=== PATIENT | female | born 1950 | race Caucasian/White ===

== ENCOUNTER 2017-04-05 18:51 | Inpatient (IN) | payer BC ==
[~2017-04-05] VITALS: Ht 157.5 cm; Wt 72.8 kg
[2017-04-06] VITALS (11 sets, daily range): BP systolic 103–137; BP diastolic 58–73; PULSE 59–73; RESP 18–20; Ht 157.5 cm; Wt 72.8 kg
[2017-04-06] MEDS ORDERED: NITROGLYCERIN (SL) 0.4 MG TAB SL PRN (02:30)
[2017-04-06] MEDS ORDERED: ACETAMINOPHEN 325 MG TAB PO PRN ×2 (02:30→15:30)
[2017-04-06] MEDS ORDERED: DOCU-144 PO (03:00)
[2017-04-06] MEDS ORDERED: ESCI10TA PO (03:00)
[2017-04-06] MEDS ORDERED: METF1000 PO (03:00)
[2017-04-06] MEDS ORDERED: GLYB5TAB3 PO (03:00)
[2017-04-06] MEDS ORDERED: GLUCAGON 1 MG INJ IM PRN (03:00)
[2017-04-06] MEDS ORDERED: GEMF600T60 PO (03:00)
[2017-04-06] MEDS ORDERED: NITR0.4T6 SL (03:00)
[2017-04-06] MEDS ORDERED: ACET325C PO (03:00)
[2017-04-06] MEDS ORDERED: ASPI81TA3 PO (03:00)
[2017-04-06] MEDS ORDERED: TRAZ100T15 PO (03:00)
[2017-04-06] MEDS ORDERED: ATOR80TA75 PO (03:00)
[2017-04-06] MEDS ORDERED: GLUCOSE GEL 15 GRAM TUBE PO PRN ×2 (03:00)
[2017-04-06] MEDS ORDERED: GLUCOSE GEL 15 GRAM TUBE BUCCAL PRN (03:00)
[2017-04-06] MEDS ORDERED: LISI-313 PO (03:00)
[2017-04-06] MEDS ORDERED: DEXTROSE 50% 50 ML SYRINGE IV PRN ×2 (03:00)
[2017-04-06] MEDS ORDERED: NOVO3I SC (03:00)
[2017-04-06] MEDS ORDERED: metFORMIN 500 MG TAB PO SCH (08:00)
[2017-04-06] MEDS: INSULIN ASPART [NOVOLOG] 3 ML PEN SC SCH ×3 (08:26→18:05)
[2017-04-06] MEDS ORDERED: ASPIRIN 81 MG TAB PO SCH (09:00)
[2017-04-06] MEDS ORDERED: GEMFIBROZIL 600 MG TAB PO SCH (09:00)
[2017-04-06] MEDS ORDERED: LISINOPRIL 5 MG TAB PO SCH (09:00)
[2017-04-06] MEDS ORDERED: DOCUSATE SODIUM 100 MG CAP PO SCH (09:00)
[2017-04-06] MEDS ORDERED: ESCITALOPRAM 10 MG TAB PO SCH (09:00)
[2017-04-06 10:09] LABS: BASOPHILS % 0.4 % (0.0-2.0); EOSINOPHILS # 0.1 10^3/ul (0.0-0.5); EOSINOPHILS % 2.7 % (0.0-7.0); HEMATOCRIT 40.5 % (37.0-47.0); HEMOGLOBIN 13.3 g/dl (12.0-16.0); LYMPHOCYTES # 1.1 10^3/ul (0.8-2.9); LYMPHOCYTES % 22.9 % (15.0-51.0); MEAN CORPUSCULAR HEMOGLOBIN 28.9 pg (29.0-33.0); MEAN CORPUSCULAR HGB CONC 32.8 g/dl (32.0-37.0); MEAN CORPUSCULAR VOLUME 87.9 fl (82.0-101.0); MONOCYTE # 0.4 10^3/ul (0.3-0.9); MONOCYTES % 7.5 % (0.0-11.0); NEUTROPHILS % 66.3 % (39.0-77.0); PLATELET COUNT 172 10^3/UL (140-415); RED BLOOD COUNT 4.61 10^6/ul (4.20-5.40); RED CELL DISTRIBUTION WIDTH 13.2 % (11.5-14.5); WHITE BLOOD COUNT 4.8 10^3/ul (4.8-10.8)
[2017-04-06 10:24] LABS: INR 0.94; PROTIME 12.6 Sec (12.2-14.2)
[2017-04-06 10:25] LABS: PARTIAL THROMBOPLASTIN TIME 28.4 Sec (25.0-35.0)
[2017-04-06 10:31] LABS: ALBUMIN/GLOBULIN RATIO 1.25; CALCIUM 9.5 mg/dl (8.4-10.2); CREATININE 0.81 mg/dl (0.44-1.00); POTASSIUM 4.3 mmol/L (3.5-5.1); TOTAL PROTEIN 7.2 g/dl (6.1-8.1)
[2017-04-06] MEDS ORDERED: FENTAnyl 50 MCG/ML VIAL ONE (14:40)
[2017-04-06] MEDS ORDERED: IODIXANOL LOCM 100 ML BTL ONE (14:40)
[2017-04-06] MEDS ORDERED: SOD CHLORIDE 0.9% 500 ML ONE (14:40)
[2017-04-06] MEDS ORDERED: LIDOCAINE 1% (MDV) 20 ML INJ ONE (14:40)
[2017-04-06] MEDS ORDERED: HEPARIN 1000 UNITS/ML 10 ML INJ ONE (14:40)
[2017-04-06] MEDS ORDERED: MIDAZOLAM 1 MG/ML 2 ML INJ ONE (14:40)
[2017-04-06] MEDS ORDERED: SOD CHLORIDE 0.9% 1,000 ML IV SCH (15:15)
--- NOTE | 2017-04-06 15:22 | PN ---
Date/Time of Note Date/Time of Note DATE: 04/06/17 TIME: 15:17 Assessment/Plan VTE Prophylaxis VTE Prophylaxis Intervention: ambulation Lines/Catheters IV Catheter Type (from Nrsg): Saline Lock Urinary Cath still in place: No Assessment/Plan Chief Complaint/Hosp Course Impression 1. Probable acute coronary syndrome, myocardial infarction ruled out. 2. Atherosclerotic heart disease. 3. Hypertension. 4. Diabetes mellitus type 2. 5. Dyslipidemia. Plan 66-year-old female with multiple risk factors for coronary artery disease was initially admitted to [facility] with chief complaint of left- sided chest pain and left arm pain. Patient was ruled out for myocardial infarction with serial cardiac enzymes and EKGs. Patient underwent Lexiscan myocardial perfusion imaging study which revealed significant anteroseptal and apical ischemia and normal ejection fraction. Patient was transferred to [facility] for left heart catheterization and coronary angiography and revascularization procedure as guided. I discussed this procedure with patient's son over the phone who appears her understood the procedure and indicated that his mother is willing to proceed with it. Problems: Subjective 24 Hr Interval Summary Constitutional: no complaints Eyes: no complaints ENT: no complaints Respiratory: no complaints Cardiovascular: no complaints Gastrointestinal: no complaints Genitourinary: no complaints Musculoskeletal: no complaints Skin: no complaints Neurologic: no complaints Exam/Review of Systems Vital Signs Vitals Vital Signs Date Time Temp Pulse Resp B/P Pulse Ox O2 Delivery O2 Flow Rate FiO2 04/06/17 12:32 65 04/06/17 11:49 98.3 20 137/73 96 04/06/17 00:30 Room Air Intake and Output 04/05/17 04/05/17 04/06/17 15:00 23:00 07:00 Intake Total 100 ml Balance 100 ml Exam Constitutional: alert, oriented, well developed Psych: nl mood/affect, no complaints Head: atraumatic, normocephalic Eyes: EOMI, nl conjunctiva Neck: non-tender, supple Respiratory: clear to auscultation, normal air movement Cardiovascular: nl pulses, regular rate and rhythm Gastrointestinal: nl liver, spleen, non-tender, soft Musculoskeletal: nl extremities to inspection, nl gait and stance Extremities: normal pulses Neurological: COUNSELOR CAMP II-XII intact Results Result Diagram: 04/06/17 0947 04/06/17 0947 Results 24 hrs Laboratory Tests Test 04/06/17 07:54 04/06/17 09:47 04/06/17 12:10 Bedside Glucose 175 175 White Blood Count 4.8 Red Blood Count 4.61 Hemoglobin 13.3 Hematocrit 40.5 Mean Corpuscular Volume 87.9 Mean Corpuscular Hemoglobin 28.9 L Mean Corpuscular Hemoglobin Concent 32.8 Red Cell Distribution Width 13.2 Platelet Count 172 Mean Platelet Volume 10.0 Neutrophils % 66.3 Lymphocytes % 22.9 Monocytes % 7.5 Eosinophils % 2.7 Basophils % 0.4 Nucleated Red Blood Cells % 0.0 Neutrophils # (Manual) 3 Lymphocytes # 1.1 Monocytes # 0.4 Eosinophils # 0.1 Basophils # 0.0 Nucleated Red Blood Cells # 0.0 Prothrombin Time 12.6 Prothrombin Time Ratio 1.0 INR International Normalized Ratio 0.94 Activated Partial Thromboplast Time 28.4 Sodium Level 138 Potassium Level 4.3 Chloride Level 103 Carbon Dioxide Level 26 Anion Gap 13 Blood Urea Nitrogen 17 Creatinine 0.81 Glucose Level 219 Calcium Level 9.5 Total Bilirubin 1.0 Direct Bilirubin 0.00 Indirect Bilirubin 1.0 Aspartate Amino Transf (AST/SGOT) 18 Alanine Aminotransferase (ALT/SGPT) 34 Alkaline Phosphatase 85 Total Protein 7.2 Albumin 4.0 Globulin 3.20 Albumin/Globulin Ratio 1.25 Medications Medications Current Medications Diagnostic Test (Pha) (Accu-Chek) 1 02 XX ; Start 04/07/17 at 02:00 Acetaminophen (Tylenol Tab) 650 mg Q6H PRN PO PAIN AND OR ELEVATED TEMP; Start 04/06/17 at 02:30 Lisinopril (Zestril) 5 mg DAILY PO Last administered on 04/06/17 08:31; Admin Dose 5 MG; Start 04/06/17 at 09:00 Aspirin (Aspirin) 81 mg DAILY PO Last administered on 04/06/17 08:31; Admin Dose 81 MG; Start 04/06/17 at 09:00 Docusate Sodium (Colace) 100 mg DAILY PO Last administered on 04/06/17 08:28; Admin Dose 100 MG; Start 04/06/17 at 09:00 Atorvastatin Calcium (Lipitor) 20 mg HS PO ; Start 04/06/17 at 21:00 Nitroglycerin (Nitroglycerin (Sl Tab) 0.4 Mg) 1 tab Q5M PRN SL ANGINA; Start at 02:30 Trazodone HCl (Desyrel) 100 mg HS PO ; Start 04/06/17 at 21:00 Escitalopram Oxalate (Lexapro) 10 mg DAILY PO Last administered on 04/06/17 08 :27; Admin Dose 10 MG; Start 04/06/17 at 09:00 Gemfibrozil (Lopid) 600 mg BID PO Last administered on 04/06/17 08:27; Admin Dose 600 MG; Start 04/06/17 at 09:00 Miscellaneous Information 1 ea NOTE XX ; Start 04/06/17 at 03:00 Glucose (Glutose) 15 gm Q15M PRN PO DECREASED GLUCOSE; Start 04/06/17 at 03:00 Glucose (Glutose) 22.5 gm Q15M PRN PO DECREASED GLUCOSE; Start 04/06/17 at 03: 00 Dextrose (D50w Syringe) 25 ml Q15M PRN IV DECREASED GLUCOSE; Start 04/06/17 at 03:00 Dextrose (D50w Syringe) 50 ml Q15M PRN IV DECREASED GLUCOSE; Start 04/06/17 at 03:00 Glucagon (Glucagen) 1 mg Q15M PRN IM DECREASED GLUCOSE; Start 04/06/17 at 03:00 Glucose (Glutose) 15 gm Q15M PRN BUCCAL DECREASED GLUCOSE; Start 04/06/17 at 03 :00 Copies To: CC: LAMINE DYER MD, RAVI MD Apr 06, 2017 15:22
[2017-04-06] MEDS ORDERED: ONDANSETRON 4 MG INJ IV PRN (15:30)
[2017-04-06] MEDS ORDERED: AL HYDROX/MG HYDROX/SIMETH 30 ML CUP PO PRN (15:30)
[2017-04-06] MEDS ORDERED: HOLD all METFORMIN and METFORMIN CONTAINING medications for 48 hours post procedure. Chec XX ONE (15:30)
[2017-04-06] MEDS ORDERED: morphine 2 MG INJ IV PRN (15:30)
--- NOTE | 2017-04-06 15:34 | OPR ---
Date/Time of Note Date/Time of Note DATE: 04/06/17 TIME: 15:24 Operative Report Procedure Date: Apr 06, 2017 Preoperative Diagnosis Coronary artery disease, Lexiscan myocardial perfusion imaging study is positive for fairly extensive anteroseptal and apical ischemia. Postoperative Diagnosis Moderate plaquing throughout the coronary vasculature without any significant flow obstructive fixed coronary artery disease. Operation Performed Left heart catheterization and bilateral coronary arteries and angiogram. Surgeon: LAMINE DYER MD Anesthesia Type: moderate sedation Tourniquet Time: Not applicable Estimated Blood Loss: minimal Transfusion Required: no Specimen: none Grafts/Implants: none Complications: no Pt Condition Post Procedure: stable Procedure Description After appropriate informed consent was taken. Patient was brought into cardiac catheterization lab in a fasting state. Left and right groin were prepped and draped in the usual sterile fashion utilizing chlorhexidine. Right groin was infiltrated with 1% lidocaine to achieve local anesthesia. Right femoral artery was cannulated with 6 Namibian sheath utilizing modified Seldinger technique. 1 mg of Versed and 25 mg of fentanyl were given intravenously for sedation. JL4, JR4 and pigtail catheter are utilized to do coronary cineangiogram and left ventricular cineangiogram. At the end of procedure or guidewire, catheter and sheath were withdrawn. Direct firm pressure was applied to the right femoral artery puncture site until all bleeding stopped. Patient tolerated procedure very well without any immediate complication and left the cardiac catheterization lab in a stable state with intact distal pedal pulses. Report of left heart catheterization and coronary angiography Left main coronary artery: Left main coronary artery is a good sized vessel without any significant coronary artery disease. Left anterior descending artery.: Left anterior descending artery is a good sized vessel. It tapers down in the middle region without any significant flow obstructive coronary disease. Left circumflex coronary artery: Left circumflex coronary artery the big dominant vessel. It is moderate plaquing in the proximal region maximum estimated about 40-50%, not thought to be flow obstructive. Right coronary artery: Right coronary artery disease small nondominant vessel has minor plaquing only without any significant flow obstructive coronary artery disease. Left ventricular cineangiogram: Left ventricular cavity size is normal with good left ventricular systolic function. No segmental wall motion abnormalities noted. Overall ejection fraction is normal estimated about 55-60% . Hemodynamics Left ventricular end-diastolic pressure is 4 mmHg and there is no gradient noted across the aortic valve. Conclusion 1. Normal left ventricle size with good left ventricular systolic function. No segmental wall motion abnormalities noted. Overall ejection fraction is normal estimated about 55-60%. 2. Normal hemodynamics with normal left ventricular end-diastolic pressure of about 4 mm and there is no gradient noted across the aortic valve. 3. Mild to moderate plaquing only throughout the coronary vasculature without any significant flow obstructive coronary disease. This is a left dominant system. LAMINE DYER MD Apr 06, 2017 15:34
--- NOTE | 2017-04-06 17:46 | HP ---
DATE OF ADMISSION: 04/05/2017 REASON FOR ADMISSION: Chest pain, positive stress test. HISTORY OF PRESENT ILLNESS: This is a 66-year-old woman with a past medical history of hypertension, diabetes, history of hemorrhoid surgery, history of appendectomy, who presented to [facility] after she was sent from [facility] for a positive stress test. Patient presented to the [facility] on the 04 of May with some left upper extremity numbness. Also some intermittent left sided chest pain. The patient had EKGs which showed a sinus bradycardia, short PA intervals with nonspecific ST-T wave changes. Troponins were negative. The patient was seen by cardiology consultation with Dr. Cortes and had a Lexiscan which showed significant anteroseptal apical ischemia with normal ejection fraction. Hence, the patient was transferred to [facility] for coronary angiogram. Currently patient denies any chest pain, any shortness of breath, any orthopnea, PND, any lower extremity edema. PAST MEDICAL HISTORY: Dyslipidemia, hypertension, depression, history of diabetes mellitus. ALLERGIES: NEGATIVE. MEDICATIONS: At home: 1. Aspirin. 2. Lipitor. 3. Glyburide. 4. Lisinopril. 5. Metformin. 6. Trazodone. 7. Colace. SOCIAL HISTORY: Denies any history of smoking, alcohol or any drug use. FAMILY HISTORY: No history of premature coronary artery disease in the family. REVIEW OF SYSTEMS: HEENT: Unremarkable. LUNGS: Unremarkable. CARDIOVASCULAR: As above. ABDOMEN: Unremarkable. EXTREMITIES: Unremarkable. CENTRAL NERVOUS SYSTEM: Unremarkable. PHYSICAL EXAMINATION: VITAL SIGNS: The patient is afebrile. Heart rate 75, respiration 18, blood pressure 127/71. GENERAL: Patient is awake, alert, oriented x4. Does not appear to be in any acute distress, Albanian speaking. NECK: Supple. No JVD. LUNGS: Clear to auscultate bilaterally. HEART: Regular rate and rhythm. No murmur, rub, or gallop. ABDOMEN: Soft, nontender, nondistended. Positive bowel sounds. EXTREMITIES: No clubbing, cyanosis, or edema. CENTRAL NERVOUS SYSTEM: Patient is awake, alert. No focal deficits noted. LABORATORY DATA: Labs here show BMP within normal limits.Glucose 219. White count of 4.8, hemoglobin of 13.3, platelet count 172. EKG reported as from [facility] and [facility]. ASSESSMENT: This is a 66-year-old woman presenting with: 1. Chest pain with positive stress test. Rule out acute coronary syndrome. 2. Diabetes. 3. Hypertension. 4. Hypercholesteremia. 5. History of hemorrhoid surgery. 6. History of appendectomy. PLAN: The patient is admitted to [facility] for coronary angiogram. Patient will get a coronary angiogram with Dr. Cortes today and we will continue the patient on aspirin, statin, lisinopril. Will monitor the patient closely with cardiology consultation. The rest of the treatment depends on the patient's hospitalization course. Dictated By: MD YULIET Smith/jared/kimberly /Document#: [id number] HAL
--- NOTE | 2017-04-06 18:24 | DS ---
DATE OF ADMISSION: 04/05/2017 DATE OF DISCHARGE: 04/06/2017 FINAL DIAGNOSES: 1. Chest pain. Lexiscan stress positive for ischemia, however, status post coronary angiogram that showed [id number] plaquing only throughout the coronary vasculature without any significant flow obstructive coronary artery disease. 2. Hypertension. 3. Diabetes. 4. Hyper cholesterolemia. 5. History of appendectomy. 6. History of depression. 7. History of hemorrhoid surgery. HOSPITAL COURSE: This is a 66-year-old woman with a past medical history of hypertension, diabetes, dyslipidemia, who was admitted to [facility] on April 03 with a chief complaint of left-sided chest pain and left arm pain. The patient was ruled out for CA with serial cardiac enzymes and EKG. Patient underwent Lexiscan myocardial perfusion study which revealed significant anteroseptal and apical ischemia. Normal ejection fraction. Patient was transferred to [facility] for coronary angiogram. Patient had coronary angiogram done by Dr. Cortes which showed nonobstructive coronary artery disease. Postop, the patient was doing much better. Denied any chest pain, and currently is being discharged in stable condition. DISCHARGE MEDICATIONS: 1. Aspirin 81 p.o. daily. 2. Lipitor 80 mg p.o. at bedtime. 3. Lisinopril 5 mg p.o. daily. 4. Lexapro 10 mg p.o. daily. 5. Metformin 1000 mg p.o. b.i.d. to be held for 48 hours. 6. Glyburide 10 mg p.o. daily. FOLLOWUP: The patient was instructed to follow up with the PCP in 1-2 weeks. Dictated By: MD YULIET Jansen/jared/kimberly /Document#: [id number] HAL
[2017-04-06] MEDS ORDERED: ATORVASTATIN 20 MG TAB PO SCH (21:00)
[2017-04-06] MEDS ORDERED: ATORVASTATIN 80 MG TAB PO SCH (21:00)
[2017-04-06] MEDS ORDERED: traZODone 100 MG TAB PO SCH (21:00)
[2017-04-07] MEDS ORDERED: ACCU-CHEK XX SCH ×2 (02:00)
== END 2017-04-06 20:00 | disposition home or self-care (01) | DRG 287 ==
LOC: MS4 23:59
PROVIDERS: ADMIT Internal Medicine Nephrology; ATTEND Internal Medicine Nephrology
PROC: B2111ZZ Fluoroscopy of Multiple Coronary Arteries using Low Osmolar Contrast (ICD-10-PCS; 2017-04-06)
PROC: 4A023N7 Measurement of Cardiac Sampling and Pressure, Left Heart, Percutaneous Approach (ICD-10-PCS; principal; 2017-04-06 14:30)
DX: I25.10 Atherosclerotic heart disease of native coronary artery without angina pectoris (principal); I10 Essential (primary) hypertension; E11.9 Type 2 diabetes mellitus without complications; Z79.82 Long term (current) use of aspirin; E78.5 Hyperlipidemia, unspecified
CPT/HCPCS: 80053; 82962; 85025; 85610; 85730; 93458; C1760; C1769; C1887; J1644; J1815; J2250; J3010; J7030; J7040; Q9967

== ENCOUNTER 2017-04-13 09:21 | Emergency (ER) | payer BC ==
[~2017-04-13] VITALS: Ht 162.6 cm; Wt 160.0 kg
[~2017-04-13 09:21] MED LIST: ASPI81TA3 PO; ATOR80TA75 PO; ESCI10TA PO; GLYB5TAB3 PO; LISI-313 PO; METF1000 PO
[2017-04-13 09:23] VITALS: Ht 162.6 cm; Wt 160.0 kg
[2017-04-13] MEDS ORDERED: ACETAMINOPHEN 325 MG TAB PO ONE (11:00)
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
[2017-04-13 11:56] LABS: ADD UMIC YES; UR ASCORBIC ACID NEGATIVE (NEGATIVE); UR BACTERIA FEW /HPF (NONE SEEN); UR BILIRUBIN (Dip) NEGATIVE (NEGATIVE); UR BLOOD (Dip) 3+ mg/dL (NEGATIVE); UR CLARITY CLEAR (CLEAR); UR COLOR STRAW (YELLOW); UR GLUCOSE (Dip) NEGATIVE (NEGATIVE); UR KETONES (Dip) NEGATIVE (NEGATIVE); UR LEUKOCYTE ESTERASE (Dip) NEGATIVE Leu/ul (NEGATIVE); UR NITRITE (Dip) NEGATIVE (NEGATIVE); UR RBC 1 /HPF (0-5); UR SPECIFIC GRAVITY (Dip) 1.004 (1.003-1.030); UR TOTAL PROTEIN (Dip) NEGATIVE (NEGATIVE); UR UROBILINOGEN (Dip) NEGATIVE (NEGATIVE)
[2017-04-13] MEDS ORDERED: ACET500C5 PO (12:03)
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
== END 2017-04-13 13:27 | disposition home or self-care (01) ==
LOC: FTE 09:21
DX: S20.211A Contusion of right front wall of thorax, initial encounter (principal); V49.50XA Passenger injured in collision with unspecified motor vehicles in traffic accident, initial encounter; Z79.82 Long term (current) use of aspirin; Z79.84 Long term (current) use of oral hypoglycemic drugs; Z87.891 Personal history of nicotine dependence
CPT/HCPCS: 70450; 71100; 72125; 81001; Z7502; Z7610

== ENCOUNTER 2018-09-10 00:16 | Inpatient (IN) | payer BC, MEDICAID, OTHER ==
[~2018-09-10] VITALS: Ht 160 cm; Wt 77.2 kg
[2018-09-10] VITALS (14 sets, daily range): BP systolic 118–143; BP diastolic 58–81; PULSE 70–152; RESP 16; Ht 160 cm; Wt 77.2 kg
[~2018-09-10 00:16] MED LIST changes: +ACET500C5 PO; +ASPI-903 PO; -ASPI81TA3 PO; +ATOR-2 PO; -ATOR80TA75 PO; -METF1000 PO; +METF100010 PO
[2018-09-10] MEDS ORDERED: MAGNESIUM SULFATE 2 GM/50 ML 50 ML IVPB STA (00:43)
[2018-09-10] MEDS ORDERED: DILTIAZEM 25 MG INJ IV STA (00:43)
[2018-09-10] MEDS ORDERED: ASPIRIN 325 MG TAB PO STA (00:43)
[2018-09-10] MEDS ORDERED: DILTIAZEM-D5W 125MG/125ML DRIP 125 ML IV STA (00:43)
--- NOTE | 2018-09-10 01:33 | ERD ---
ER Documentation Chief Complaint Chief Complaint CP/SOB/palpitations that started today HPI During the patient's encounter translation services were utilized Language: Areefraian Source: Family 67-year-old female who presents to the emergency room with 2-3 days of left- sided chest discomfort and palpitations. She is found to have atrial fibrillation with rapid ventricular response. This is a new diagnosis for the patient. She denies any leg swelling, pleuritic pain or shortness of breath. The pain currently is 2 out of 10. Nonradiating. She denies any fevers chills or cough. No drugs or alcohol. ROS All systems reviewed and are negative except as per history of present illness. Medications Home Meds Active Scripts Acetaminophen* (Tylophen*) 500 Mg Capsule, 1 CAP PO Q6H PRN for PAIN AND OR ELEVATED TEMP, #20 CAP Prov:MADHU DORSEY MD 04/13/17 Reported Medications Atorvastatin* (Atorvastatin*) 80 Mg Tablet, 80 MG PO QHS, #30 TAB 04/06/17 Escitalopram Oxalate* (Lexapro*) 10 Mg Tablet, 10 MG PO DAILY, #30 TAB 04/06/17 Metformin Hcl* (Metformin Hcl*) 1,000 Mg Tablet, 1000 MG PO WITH BREAKFAST DINNE, #30 TAB 04/06/17 Glyburide* (Glyburide*) 5 Mg Tablet, 10 MG PO DAILY, #30 TAB 04/06/17 Aspirin* (Aspirin* Chew) 81 Mg Tab.chew, 81 MG PO DAILY, TAB.CHEW 04/06/17 Lisinopril* (Lisinopril*) 5 Mg Tablet, 5 MG PO DAILY, #30 TAB 04/06/17 Allergies Allergies: Coded Allergies: No Known Allergies (Verified Allergy, Unknown, 04/06/17) PMhx/Soc History of Surgery: Yes (HEMMORHOID SX,APPENDECTOMY) Anesthesia Reaction: No Hx Neurological Disorder: No Hx Respiratory Disorders: No Hx Cardiac Disorders: No Hx Psychiatric Problems: No Hx Miscellaneous Medical Probl: Yes (DYSLIPIDEMIA,DEPRESSION) Hx Alcohol Use: No Hx Substance Use: No Hx Tobacco Use: No FmHx Family History: No diabetes Physical Exam Vitals Vital Signs Date Temp Pulse Resp B/P (MAP) Pulse Ox O2 O2 Flow FiO2 Time Delivery Rate 09/10/18 158 28 128/91 97 Room Air 00:45 (103) 1/28/19 99.5 160 20 131/97 97 00:29 (108) Physical Exam General: Well developed, well nourished, no acute distress Head: Normocephalic, atraumatic. Eyes: Pupils equally reactive, EOM intact ENT: Moist mucous membranes Neck: Supple, no lymphadenopathy Respiratory: Lungs clear bilaterally, no distress Cardiovascular: Irregularly irregular, no murmurs, rubs, or gallops Abdominal: Soft, non-tender, non-distended, no peritoneal signs : Deferred MSK: No edema, no unilateral swelling, 5/5 strength Neurologic: Alert and oriented, moving all extremities, normal speech, no focal weakness, no cerebellar signs Skin: No rash Psych: Normal mood Result Diagram: 09/10/184909/10/1849 Results 24 hrs Laboratory Tests Test 09/10/18 00:50 White Blood Count 8.3 10^3/ul Red Blood Count 4.63 10^6/ul Hemoglobin 13.5 g/dl Hematocrit 40.9 % Mean Corpuscular Volume 88.3 fl Mean Corpuscular Hemoglobin 29.2 pg Mean Corpuscular Hemoglobin Concent 33.0 g/dl Red Cell Distribution Width 13.2 % Platelet Count 198 10^3/UL Mean Platelet Volume 10.8 fl Immature Granulocytes % 0.200 % Neutrophils % 68.2 % Lymphocytes % 23.1 % Monocytes % 6.8 % Eosinophils % 1.6 % Basophils % 0.1 % Nucleated Red Blood Cells % 0.0 /100WBC Immature Granulocytes # 0.020 10^3/ul Neutrophils # 5.6 10^3/ul Lymphocytes # 1.9 10^3/ul Monocytes # 0.6 10^3/ul Eosinophils # 0.1 10^3/ul Basophils # 0.0 10^3/ul Nucleated Red Blood Cells # 0.0 10^3/ul Prothrombin Time 11.9 Sec Prothrombin Time Ratio 0.9 INR International Normalized Ratio 0.87 Activated Partial Thromboplast Time 23.9 Sec Sodium Level 143 mmol/L Potassium Level 4.3 mmol/L Chloride Level 101 mmol/L Carbon Dioxide Level 28 mmol/L Anion Gap 14 Blood Urea Nitrogen 14 mg/dl Creatinine 0.62 mg/dl Est Glomerular Filtrat Rate mL/min > 60 mL/min Glucose Level 125 mg/dl Calcium Level 9.4 mg/dl Troponin I < 0.012 ng/ml Thyroid Stimulating Hormone (TSH) 3.890 MIU/L Free Thyroxine Index 2.71 ug/ml Thyroxine (T4) 10.8 ug/dl Triiodothyronine (T3) Uptake 25.1 % Current Medications Medications Dose Sig/Lilly Start Time Status Last (Trade) Ordered Route PRN Stop Time Admin Dose Reason Admin Aspirin 325 mg ONCE STAT 09/10/18 DC 09/10/18 (Aspirin) PO 00:43 01:07 09/10/18 00:46 Diltiazem 20 mg ONCE STAT 09/10/18 DC 09/10/18 HCl IV 00:43 01:07 (Cardizem Iv) 09/10/18 00:46 Diltiazem 125 ml @ 5 ONCE STAT 09/10/18 09/10/18 HCl mls/hr IV 00:43 02:40 09/11/18 01:42 Magnesium 50 ml @ ONCE STAT 09/10/18 DC 09/10/18 Sulfate 600 mls/hr IVPB 00:43 01:07 09/10/18 00:47 Procedures/MDM EKG, MONITORS, & DIAGNOSTIC IMAGING: EKG: I reviewed and interpreted a 12-lead EKG. Rhythm: a fib with RVR ST Changes: No contiguous ST segment elevations T waves: No contiguous T wave inversions Impression: A fib rvr Repeat EKG: EKG: I reviewed and interpreted a 12-lead EKG. Rhythm: afib rate controlled ST Changes: No contiguous ST segment elevations T waves: No contiguous T wave inversions Impression: a fib rate controlled Chest x-ray: I reviewed and interpreted a 1 view of the chest Mediastinum: No enlargement Cardiac silhouette: No cardiomegaly Airspace: Clear lung willson bilaterally without evidence of pneumothorax Bones: No evidence of fracture PROCEDURES: [None] LAB INTERPRETATION: * Trop negative MEDICAL DECISION MAKING: The patient's history, physical exam and clinical presentation is consistent with new onset atrial fibrillation with rapid ventricular response. The patient does have chest pain concerning for possible acute coronary syndrome. Low concern for pulmonary embolism. Based on the patient's clinical exam and history and risk factors, I have a much lower clinical concern for pulmonary embolism, acute aortic dissection, pneumothorax, pneumonia, cardiac tamponade HEART Score: 3 MACE Rate: 1.7% Shared Decision Making: We had a conversation regarding risk stratification, MACE rate, and the risks, benefits, alternatives of disposition planning options. Disposition planning: Admit given new onset a fib rvr ER COURSE: * An IV was established the patient was given aspirin, magnesium, Cardizem bolus. Drip to the bedside. * Patient had rate control. * CP free CONSULTATION: [None] DISPOSITION PLAN: Telemetry admission Accepting care team and consultations: I discussed the current laboratory data, diagnostic imaging and emergency care provided. Admitting team: Dr. Robb asked for Dr Barillas given admit in past. Dr. Barillas called back at 3:30am and asked for hospitalist admit given insurance issues. Dr Robb will admit Admitting team indication: Insurance directed Departure Diagnosis: Primary Impression: Atrial fibrillation with RVR Additional Impressions: New onset atrial fibrillation Left sided chest pain Condition: Stable LEVI CARUSO MD Sep 10, 2018 01:33
[2018-09-10] MEDS ORDERED: METOPROLOL 5 MG INJ IV PRN (03:30)
[2018-09-10] MEDS ORDERED: BISACODYL (EC) 5 MG TAB PO PRN (04:00)
[2018-09-10] MEDS ORDERED: NITROGLYCERIN (SL) 0.4 MG TAB SL PRN (04:00)
[2018-09-10] MEDS ORDERED: ONDANSETRON 4 MG INJ IV PRN ×2 (04:00)
[2018-09-10] MEDS ORDERED: DOCUSATE SODIUM 100 MG CAP PO PRN (04:00)
[2018-09-10] MEDS ORDERED: ENOXAPARIN 80 MG/0.8 ML SYG SC SCH (04:00)
[2018-09-10] MEDS ORDERED: NACL 0.9% 3 ML SYG IV SCH (04:00)
[2018-09-10] MEDS ORDERED: ACETAMINOPHEN 325 MG TAB PO PRN ×2 (04:00)
[2018-09-10] MEDS: ENOXAPARIN 80 MG/0.8 ML SYG SC SCH ×2 (06:30→20:21)
[2018-09-10] MEDS ORDERED: DOXYCYCLINE 100 MG in SOD CHLORIDE 0.9% 250 ML IVPB SCH (08:30)
--- NOTE | 2018-09-10 08:30 | HP ---
Date/Time of Note Date/Time of Note DATE: 09/10/18 TIME: 08:29 Assessment/Plan VTE Prophylaxis Pharmacological prophylaxis: LMWH Lines/Catheters IV Catheter Type (from Nrsg): Peripheral IV Assessment/Plan Hospital Course This is a 67-year-old female being admitted to the telemetry floor for: #1 rapid A. fib with RVR: We will check hemoglobin A 1C, lipid panel, TSH, this likely could have been triggered by her upper respiratory infection. Cardizem drip, trend cardiac enzymes, chadsvasc score 4, Lovenox, aspirin, will consult echocardiogram, will consult cardiology . #2 upper respiratory infection: Doxycycline 100 mg twice daily times 7 days #3 hypertension: Continue home medication #4 diabetes mellitus:Will hold home oral medications, hemoglobin A1c, insulin scale #5 hyponatremia: Check lipid panel, statin #6 depression: Continue Lexapro #7 DVT GI prophylaxis: Lovenox, no GI prophylaxis indicated further treatment strategy will be implemented for the course Result Diagram: 09/10/18 0615 09/10/18 0615 Results 24hrs Laboratory Tests Test 09/10/18 00:50 09/10/18 06:15 White Blood Count 8.3 # 7.6 Red Blood Count 4.63 4.26 Hemoglobin 13.5 12.4 Hematocrit 40.9 38.2 Mean Corpuscular Volume 88.3 89.7 Mean Corpuscular Hemoglobin 29.2 29.1 Mean Corpuscular Hemoglobin Concent 33.0 32.5 Red Cell Distribution Width 13.2 13.2 Platelet Count 198 215 Mean Platelet Volume 10.8 H 10.7 H Immature Granulocytes % 0.200 0.300 Neutrophils % 68.2 70.4 Lymphocytes % 23.1 22.0 Monocytes % 6.8 6.0 Eosinophils % 1.6 1.2 Basophils % 0.1 0.1 Nucleated Red Blood Cells % 0.0 0.0 Immature Granulocytes # 0.020 0.020 Neutrophils # 5.6 5.3 Lymphocytes # 1.9 1.7 Monocytes # 0.6 0.5 Eosinophils # 0.1 0.1 Basophils # 0.0 0.0 Nucleated Red Blood Cells # 0.0 0.0 Prothrombin Time 11.9 Prothrombin Time Ratio 0.9 INR International Normalized Ratio 0.87 Activated Partial Thromboplast Time 23.9 Sodium Level 143 143 Potassium Level 4.3 4.0 Chloride Level 101 105 Carbon Dioxide Level 28 31 Anion Gap 14 H 7 Blood Urea Nitrogen 14 13 Creatinine 0.62 0.68 Est Glomerular Filtrat Rate mL/min > 60 > 60 Glucose Level 125 142 Calcium Level 9.4 9.1 Troponin I < 0.012 < 0.012 Thyroid Stimulating Hormone (TSH) 3.890 Pending Free Thyroxine Index 2.71 Thyroxine (T4) 10.8 Triiodothyronine (T3) Uptake 25.1 Hemoglobin A1c 7.1 H Magnesium Level 2.4 Total Bilirubin 0.4 Direct Bilirubin 0.00 Indirect Bilirubin 0.4 Aspartate Amino Transf (AST/SGOT) 17 Alanine Aminotransferase (ALT/SGPT) 18 Alkaline Phosphatase 72 Creatine Kinase 35 Creatine Kinase Index 0.9 Creatinine Kinase MB (Mass) 0.33 Total Protein 7.0 Albumin 3.8 Globulin 3.20 Albumin/Globulin Ratio 1.18 Triglycerides Level 167 H Cholesterol Level 320 H LDL Cholesterol, Calculated 264 HDL Cholesterol 23 L Cholesterol/HDL Ratio 13.9 HPI/ROS Admit Date/Time Admit Date/Time Sep 10, 2018 at 03:32 Hx of Present Illness Chief complaint: Palpitations 67-year-old female who presents to the emergency room with 2-3 days of left- sided chest discomfort and palpitations. She reported that for the last couple days she has been having a cough along with nasal symptoms and head pressure. Denies any fevers. She also reported that she did feel slightly dizzy but denies any falls. In the emergency department she was found to be in A. fib with rapid ventricular response. She denies any leg swelling, pleuritic pain or shortness of breath. In the emergency department she was found to have atrial fibrillation with rapid ventricular response. She was started on a Cardizem drip, currently her heart rate at the bedside is fluctuating between 97-110 on 20 mics of Cardizem drip. Allergies: NKDA Medications: See OCT ROS Const: As per HPI Eyes : No pain discharge or redness or change in visual acuity ENT: As per HPI Respiratory: As per HPI Cardiovascular: As per HPI GI : no change in appetite, abdominal pain, nausea, vomiting, diarrhea, constipation, or change in the color his stool Genitourinary: No dysuria, hematuria, flank pain , discharge or CVA tenderness Musculoskeletal: No joint pain, back pain, neck pain, restricted range of motion in neck or joints Skin: No rash, bruising or hives Neuro: No headache, dizziness, syncope, seizure, focal weakness Endocrine: No polyuria, polydipsia, temperature intolerance Psych: No hallucination, depression, anxiety or suicidal ideation PMH/Family/Social Past Medical History Hypertension, diabetes mellitus hyperlipidemia, depression Medications Current Medications Diltiazem HCl 125 ml @ 5 mls/hr ONCE STAT IV Last administered on 09/10/18at 02:40; Admin Dose 5 MLS/HR; Start 09/10/18 at 00:43; Stop 09/11/18 at 01:42 Ondansetron HCl (Zofran Inj) 4 mg ER BRIDGE PRN IV NAUSEA/VOMITING; Start 09/10/18 at 04:00; Stop 09/11/18 at 03:59 Acetaminophen (Tylenol Tab) 650 mg ER BRIDGE PRN PO .MILD PAIN 1-3 OR TEMP; Start 09/10/18 at 04:00; Stop 09/11/18 at 03:59 Metoprolol Tartrate (Lopressor) 2.5 mg Q6 PRN IV ELEVATED HR; Start 09/10/18 at 03:30 IV Flush (NS 3 ml) 3 ml PER PROTOCOL IV ; Start 09/10/18 at 04:00 Ondansetron HCl (Zofran Inj) 4 mg Q6H PRN IV NAUSEA/VOMITING; Start 09/10/18 at 04:00 Aspirin (Aspirin) 81 mg DAILY PO ; Start 09/10/18 at 09:00 Nitroglycerin (Nitroglycerin (Sl Tab) 0.4 Mg) 1 tab Q5M PRN SL .CHEST PAIN; Start 09/10/18 at 04:00 Acetaminophen (Tylenol Tab) 650 mg Q6H PRN PO .PAIN 1-3 OR TEMP; Start 09/10/18 at 04:00 Docusate Sodium (Colace) 100 mg Q12H PRN PO .CONSTIPATION; Start 09/10/18 at 04:00 Bisacodyl (Dulcolax) 5 mg DAILY PRN PO .CONSTIPATION; Start 09/10/18 at 04:00 Enoxaparin Sodium (Lovenox) 75 mg Q12 SC Last administered on 09/10/18at 06:30; Admin Dose 75 MG; Start 09/10/18 at 06:30 Coded Allergies: No Known Allergies (Verified Allergy, Unknown, 04/06/17) Past Surgical History Past Surgical Hx: no surgical history Family History Significant Family History: no pertinent family hx Social History Alcohol Use: none Smoking Status: Never smoker Drug Use: none Exam/Review of Systems Vital Signs Vitals Vital Signs Date Temp Pulse Resp B/P (MAP) Pulse Ox O2 O2 Flow FiO2 Time Delivery Rate 09/10/18 97.7 95 16 118/58 96 07:25 (78) 09/10/18 Room Air 04:46 Exam Exam General: Patient is currently lying in bed he does not appear to be in acute distress, she does have a occasional cough HEENT: Atraumatic, normocephalic. The pupils are equal, round and reactive. Extraocular motor are intact Neck: Supple with full range of motion. No rigidity or meningismus Chest: Nontender Lungs: Clear to auscultation bilaterally no crackles rales or wheezing, coughing Heart: A. fib with RVR Abdomen: Soft , nontender, nondistended , bowel sounds are present. No guarding no rebound tenderness , No masses or organomegaly. No costovertebral temporal angle mass Extremities: Normal to inspection, no edema no cyanosis Neurologic: Normal mental status, speech normal, cranial nerves II through XII are intact, motor and sensory are intact, no focal weakness Additional Comments PROCEDURE: One view chest radiograph. CLINICAL INDICATION: Chest pain. TECHNIQUE: An AP view of the chest was obtained. COMPARISON: None FINDINGS: Mediastinum: There is calcification of the wall of the thoracic aorta. Heart size: Normal Pulmonary vasculature: No visible engorgement. Lungs: Clear. Costophrenic sulci: Clear. Bony structures: Grossly unremarkable for age. IMPRESSION: 1. Atherosclerosis of the thoracic aorta. 2. Otherwise, radiographically unremarkable chest. RPTAT:AAJJ Physician Reema Date Time Electronically viewed and signed by Physician Reema on 09/10/2018 01:06 GW/ CC: LEVI CARUSO MD [id number] ERIC TORIBIO Sep 10, 2018 08:30
[2018-09-10] MEDS: ESCITALOPRAM 10 MG TAB PO SCH (09:00)
[2018-09-10] MEDS: ASPIRIN 81 MG TAB PO SCH (09:00)
[2018-09-10] MEDS ORDERED: ASPIRIN 81 MG TAB PO SCH (09:00)
[2018-09-10] MEDS: LISINOPRIL 5 MG TAB PO SCH (09:00)
[2018-09-10] MEDS ORDERED: DILTIAZEM-D5W 125MG/125ML DRIP 125 ML IV SCH (09:00)
[2018-09-10] MEDS: DOXYCYCLINE 100 MG in SOD CHLORIDE 0.9% 250 ML IVPB SCH ×2 (10:41→21:00)
--- NOTE | 2018-09-10 12:32 | PN ---
Date/Time of Note Date/Time of Note DATE: 09/10/18 TIME: 12:29 Assessment/Plan VTE Prophylaxis SCD applied (from Nsg): No SCD contraindicated: other Pharmacological prophylaxis: LMWH Lines/Catheters IV Catheter Type (from Nrs): Peripheral IV Assessment/Plan Hospital Course S: Patient still on Cardizem drip, now rate controlled. No acute events overnight. O: VS - see below PE: General: lying in bed, no acute distress HEENT: Atraumatic, normocephalic. The pupils are equal, round and reactive. Extraocular motor are intact Neck: Supple with full range of motion. No rigidity or meningismus Chest: Nontender Lungs: Clear to auscultation bilaterally no crackles rales or wheezing, coughing Heart: Irregularly irregular Abdomen: Soft , nontender, nondistended , bowel sounds are present. No guarding no rebound tenderness Extremities: Normal to inspection, no edema no cyanosis Neurologic: No focal deficits Hospital Course: 67-year-old female being admitted to the telemetry floor for: #1 rapid A. fib with RVR: Still on Cardizem drip, presently rate controlled. -For now continue Cardizem drip, trend cardiac enzymes, chadsvasc score 4, -Continue Lovenox, aspirin, follow-up echocardiogram results and recommendations from cardiology team -We will also get PT consult. #2 upper respiratory infection: Doxycycline 100 mg twice daily times 7 days #3 hypertension: Continue home medication #4 diabetes mellitus: A1c was 7.1 -Continue ISS #5 High cholesterol: Lipid panel shows elevated cholesterol levels -Continue statin #6 depression: Continue Lexapro Result Diagram: 09/10/1815 09/10/18 0615 Results 24hrs Laboratory Tests Test 09/10/18 00:50 09/10/18 06:15 White Blood Count 8.3 # 7.6 Red Blood Count 4.63 4.26 Hemoglobin 13.5 12.4 Hematocrit 40.9 38.2 Mean Corpuscular Volume 88.3 89.7 Mean Corpuscular Hemoglobin 29.2 29.1 Mean Corpuscular Hemoglobin Concent 33.0 32.5 Red Cell Distribution Width 13.2 13.2 Platelet Count 198 215 Mean Platelet Volume 10.8 H 10.7 H Immature Granulocytes % 0.200 0.300 Neutrophils % 68.2 70.4 Lymphocytes % 23.1 22.0 Monocytes % 6.8 6.0 Eosinophils % 1.6 1.2 Basophils % 0.1 0.1 Nucleated Red Blood Cells % 0.0 0.0 Immature Granulocytes # 0.020 0.020 Neutrophils # 5.6 5.3 Lymphocytes # 1.9 1.7 Monocytes # 0.6 0.5 Eosinophils # 0.1 0.1 Basophils # 0.0 0.0 Nucleated Red Blood Cells # 0.0 0.0 Prothrombin Time 11.9 Prothrombin Time Ratio 0.9 INR International Normalized Ratio 0.87 Activated Partial Thromboplast Time 23.9 Sodium Level 143 143 Potassium Level 4.3 4.0 Chloride Level 101 105 Carbon Dioxide Level 28 31 Anion Gap 14 H 7 Blood Urea Nitrogen 14 13 Creatinine 0.62 0.68 Est Glomerular Filtrat Rate mL/min > 60 > 60 Glucose Level 125 142 Calcium Level 9.4 9.1 Troponin I < 0.012 < 0.012 Thyroid Stimulating Hormone (TSH) 3.890 2.490 Free Thyroxine Index 2.71 Thyroxine (T4) 10.8 Triiodothyronine (T3) Uptake 25.1 Hemoglobin A1c 7.1 H Magnesium Level 2.4 Total Bilirubin 0.4 Direct Bilirubin 0.00 Indirect Bilirubin 0.4 Aspartate Amino Transf (AST/SGOT) 17 Alanine Aminotransferase (ALT/SGPT) 18 Alkaline Phosphatase 72 Creatine Kinase 35 Creatine Kinase Index 0.9 Creatinine Kinase MB (Mass) 0.33 Total Protein 7.0 Albumin 3.8 Globulin 3.20 Albumin/Globulin Ratio 1.18 Triglycerides Level 167 H Cholesterol Level 320 H LDL Cholesterol, Calculated 264 HDL Cholesterol 23 L Cholesterol/HDL Ratio 13.9 Exam/Review of Systems Exam Vitals Vital Signs Date Temp Pulse Resp B/P (MAP) Pulse Ox O2 O2 Flow FiO2 Time Delivery Rate 09/10/18 70 12:26 09/10/18 97.9 16 133/76 98 11:43 (95) 09/10/18 Room Air 04:46 Results Results 24hrs Laboratory Tests Test 09/10/18 00:50 09/10/18 06:15 White Blood Count 8.3 # 7.6 Red Blood Count 4.63 4.26 Hemoglobin 13.5 12.4 Hematocrit 40.9 38.2 Mean Corpuscular Volume 88.3 89.7 Mean Corpuscular Hemoglobin 29.2 29.1 Mean Corpuscular Hemoglobin Concent 33.0 32.5 Red Cell Distribution Width 13.2 13.2 Platelet Count 198 215 Mean Platelet Volume 10.8 H 10.7 H Immature Granulocytes % 0.200 0.300 Neutrophils % 68.2 70.4 Lymphocytes % 23.1 22.0 Monocytes % 6.8 6.0 Eosinophils % 1.6 1.2 Basophils % 0.1 0.1 Nucleated Red Blood Cells % 0.0 0.0 Immature Granulocytes # 0.020 0.020 Neutrophils # 5.6 5.3 Lymphocytes # 1.9 1.7 Monocytes # 0.6 0.5 Eosinophils # 0.1 0.1 Basophils # 0.0 0.0 Nucleated Red Blood Cells # 0.0 0.0 Prothrombin Time 11.9 Prothrombin Time Ratio 0.9 INR International Normalized Ratio 0.87 Activated Partial Thromboplast Time 23.9 Sodium Level 143 143 Potassium Level 4.3 4.0 Chloride Level 101 105 Carbon Dioxide Level 28 31 Anion Gap 14 H 7 Blood Urea Nitrogen 14 13 Creatinine 0.62 0.68 Est Glomerular Filtrat Rate mL/min > 60 > 60 Glucose Level 125 142 Calcium Level 9.4 9.1 Troponin I < 0.012 < 0.012 Thyroid Stimulating Hormone (TSH) 3.890 2.490 Free Thyroxine Index 2.71 Thyroxine (T4) 10.8 Triiodothyronine (T3) Uptake 25.1 Hemoglobin A1c 7.1 H Magnesium Level 2.4 Total Bilirubin 0.4 Direct Bilirubin 0.00 Indirect Bilirubin 0.4 Aspartate Amino Transf (AST/SGOT) 17 Alanine Aminotransferase (ALT/SGPT) 18 Alkaline Phosphatase 72 Creatine Kinase 35 Creatine Kinase Index 0.9 Creatinine Kinase MB (Mass) 0.33 Total Protein 7.0 Albumin 3.8 Globulin 3.20 Albumin/Globulin Ratio 1.18 Triglycerides Level 167 H Cholesterol Level 320 H LDL Cholesterol, Calculated 264 HDL Cholesterol 23 L Cholesterol/HDL Ratio 13.9 Medications Medication Current Medications Ondansetron HCl (Zofran Inj) 4 mg ER BRIDGE PRN IV NAUSEA/VOMITING; Start 09/10/18 at 04:00; Stop 09/11/18 at 03:59 Metoprolol Tartrate (Lopressor) 2.5 mg Q6 PRN IV ELEVATED HR; Start 09/10/18 at 03:30 IV Flush (NS 3 ml) 3 ml PER PROTOCOL IV ; Start 09/10/18 at 04:00 Ondansetron HCl (Zofran Inj) 4 mg Q6H PRN IV NAUSEA/VOMITING; Start 09/10/18 at 04:00 Aspirin (Aspirin) 81 mg DAILY PO Last administered on 09/10/18at 09:00; Admin Dose 81 MG; Start 09/10/18 at 09:00 Nitroglycerin (Nitroglycerin (Sl Tab) 0.4 Mg) 1 tab Q5M PRN SL .CHEST PAIN; Start 09/10/18 at 04:00 Acetaminophen (Tylenol Tab) 650 mg Q6H PRN PO .PAIN 1-3 OR TEMP; Start 09/10/18 at 04:00 Docusate Sodium (Colace) 100 mg Q12H PRN PO .CONSTIPATION; Start 09/10/18 at 04:00 Bisacodyl (Dulcolax) 5 mg DAILY PRN PO .CONSTIPATION; Start 09/10/18 at 04:00 Enoxaparin Sodium (Lovenox) 75 mg Q12 SC Last administered on 09/10/18at 06:30; Admin Dose 75 MG; Start 09/10/18 at 06:30 Diltiazem HCl 125 ml @ 5 mls/hr TITRATE IV ; Start 09/10/18 at 09:00 Atorvastatin Calcium (Lipitor) 80 mg QHS PO ; Start 09/10/18 at 21:00 Escitalopram Oxalate (Lexapro) 10 mg DAILY PO Last administered on 09/10/18at 09:00; Admin Dose 10 MG; Start 09/10/18 at 09:00 Lisinopril (Zestril) 5 mg DAILY PO ; Start 09/10/18 at 09:00 Doxycycline Hyclate 100 mg/ Sodium Chloride 250 ml @ 250 mls/hr Q12 IVPB Last administered on 09/10/18at 10:41; Admin Dose 250 MLS/HR; Start 09/10/18 at 10:00 LACHO PATTON Sep 10, 2018 12:32
[2018-09-10] MEDS ORDERED: GLUCOSE GEL 15 GRAM TUBE BUCCAL PRN (13:00)
[2018-09-10] MEDS ORDERED: GLUCOSE GEL 15 GRAM TUBE PO PRN ×2 (13:00)
[2018-09-10] MEDS ORDERED: GLUCAGON 1 MG INJ IM PRN (13:00)
[2018-09-10] MEDS ORDERED: DEXTROSE 50% 50 ML SYRINGE IV PRN ×2 (13:00)
--- NOTE | 2018-09-10 15:42 | NUR ---
RN NOTES: PT'S HEART RATE HAS BEEN FLUCTUATING BETWEEN UPPER 90'S TO 150'S THROUGHOUT THE DAY. PT WAS STARTED ON CARDIZEM DRIP WITH PERFORMANCE MANAGEMENT CONSULTANT NURSE AT 5MG/HR THEN TITRATED UP TO 10MG/HR. PT'S HR WAS STILL BETWEEN 130'A-140'S THIS AM. NURSE THEN TITRATED CARDIZEM DRIP TO 15 MG/HR AROUND 9AM. HER HR THEN STARTED TO DECREASE BETWEEN 90'S-110'S AFIB. CARDIAZEM DRIP WAS THEN LOWERED TO 10MG/HR UNTIL BAG WAS FINISHED. RESTARTED A NEW BAG AT 1540 AT 12MG/HR BECAUSE PT'S HR IS GOING UP TO 150'S AT REST. WILL CONTINUE TO MONITOR PT.
--- NOTE | 2018-09-10 16:47 | RADRPT ---
Echocardiogram Report Patient Name: DANIELITO OLIVARES Gender: Female Date: 1950 Study Date: 10-Sep-2018 Corporate Intern: NIKKY Location: [facility] Ref. Physician: ERIC TORIBIO Quality: Adequate Procedures: Transthoracic echocardiogram with complete 2D, M-Mode, and doppler examination. Indications: Atrial Fibrillation with rapid ventricular rate. 2D/M Mode Doppler Measurement Value Normal Ranges Measurement Value Normal Ranges LVIDd 2D 4.1 3.5 - 5.6 cm AV Mean Reynaldo 1.0 m/sec LVIDs 2D 3.0 2.1 - 4.1 cm AV Mean PG 4.0 mmHg LVPWd 2D 0.8 0.6 - 1.1 cm AV Peak Reynaldo 1.5 m/sec IVSd 2D 1.1 0.6 - 1.1 cm AV Peak PG 8.0 mmHg AoR Diam 2D 2.8 2.0 - 3.7 cm AV VTI 23.0 cm LA/Ao 2D 2 0 - 1 LVOT Mean Reynaldo 0.7 m/sec EF 2D 53.0 50.0 - 65.0 % LVOT Mean PG 2.0 mmHg LA Dimen 2D 4.7 2.3 - 4.0 cm LVOT Peak Reynaldo 1.0 m/sec IVC Diam 2.0 1.2 - 2.0 LVOT Peak PG 4.0 mmHg TR Peak Reynaldo 2.7 m/sec TR Peak PG 29.0 mmHg RVSP 32.0 mmHg RA Pressure 3.0 Findings Left Ventricle: Normal left ventricular systolic function. Normal left ventricular cavity size. Mild hypertrophy of the basal septum. Ejection fraction is visually estimated at 55 %. Tissue Doppler/Mitral Doppler indices are indeterminate in this study due to the presence of atrial fibrillation. Right Ventricle: Moderate enlargement of right ventricle. Left Atrium: There is moderate enlargement of left atrium. Right Atrium: There is mild enlargement of right atrium. RA Pressure=3. Mitral Valve: Normal appearance and function of the mitral valve with trace physiologic regurgitation. Aortic Valve: Normal appearance of the aortic valve. No significant aortic stenosis or insufficiency. Tricuspid Valve: Normal appearance of the tricuspid valve. Estimated peak PA systolic pressure 32 mmHg. There is mild tricuspid regurgitation. Pulmonic Valve: Normal pulmonic valve appearance. Pericardium: Normal pericardium with no significant pericardial effusion. Aorta: Normal aortic root. IVC: Normal size and normal respiratory collapse consistent with normal right atrial pressure. Conclusions Normal left ventricular systolic function. Normal left ventricular cavity size. Mild hypertrophy of the basal septum. Ejection fraction is visually estimated at 55 %. Tissue Doppler/Mitral Doppler indices are indeterminate in this study due to the presence of atrial fibrillation. There is moderate enlargement of left atrium. There is mild enlargement of right atrium. RA Pressure=3. Normal appearance and function of the mitral valve with trace physiologic regurgitation. Normal appearance of the aortic valve. No significant aortic stenosis or insufficiency. Normal appearance of the tricuspid valve. Estimated peak PA systolic pressure 32 mmHg. There is mild tricuspid regurgitation. Electronically Signed By: Jakob Rene 10-Sep-2018 16:46:25 -0800 Patient Name: DANIELITO OLIVARES Study Date: 10-Sep-2018 [id number]
[2018-09-10] MEDS: INSULIN ASPART [NOVOLOG] 3 ML PEN SC SCH ×2 (17:24→20:24)
--- NOTE | 2018-09-10 19:37 | CONS ---
Assessment/Plan Assessment/Plan Hospital Course (Demo Recall) 1. Atrial fibrillation rapid ventricular response it is unclear if his new onset or worsened because of bronchitis versus chronic 2. chest pain: due to above 3. Diabetes 4. Severe dyslipidemia 5. Bronchitis Recommendations: Continue with the Lovenox and switch to p.o. Xarelto or Eliquis We will try to control the heart rate better with p.o. Cardizem as well as IV digoxin. IV Cardizem as needed as well. Rule out for myocardial infarction Respiratory care as per internal medicine Continue high-dose statin. We will add Zetia as well Telemetry monitoring for now I recommend outpatient stress testing once her pulmonary status improved and the heart rate is under good control Thank you for his referral will continue to follow along with you MIRLANDE LINO MD [facility] Consultation Date/Type/Reason Admit Date/Time Sep 10, 2018 at 03:32 Date of Consultation: Sep 10, 2018 Type of Consult Cardiology Reason for Consultation afib Requesting Provider: ERIC TORIBIO Date/Time of Note DATE: 09/10/18 TIME: 19:31 Hx of Present Illness Interventional cardiology consultation note Chief complaint: Palpitation and sharp chest pain Reason for consult: Atrial fibrillation History of present illness: Thank you for this referral. History was obtained from the patient in discussion with the staff and physicians. This is a very pleasant 67-year-old Sinhala female with diabetes hypertension dyslipidemia who presents emergency above complaint. Patient said over the past 3 days she has had cough congestion. She also has felt palpitation with the heart was beating fast and she was feeling sharp left-sided chest pain when she was having palpitations. Patient was noted to be in atrial fibrillation rapid ventricular response. So far has had negative cardiac enzymes. We will plan on Cardizem drip but heart is still not optimized Allergies: No known drug allergy Medications were reviewed as per medical reconciliation sheet Family history: Denies any history of early coronary arteries in the family Social history: Denies any tobacco alcohol drug abuse Past medical history: Diabetes, hypertension, severe dyslipidemia Review of system: Patient denies all others except for above-mentioned Past Medical History Home Meds Active Scripts Acetaminophen* (Tylophen*) 500 Mg Capsule, 1 CAP PO Q6H PRN for PAIN AND OR ELEVATED TEMP, #20 CAP Prov:MADHU DORSEY MD 04/13/17 Reported Medications Atorvastatin* (Atorvastatin*) 80 Mg Tablet, 80 MG PO QHS, #30 TAB 04/06/17 Escitalopram Oxalate* (Lexapro*) 10 Mg Tablet, 10 MG PO DAILY, #30 TAB 04/06/17 Metformin Hcl* (Metformin Hcl*) 1,000 Mg Tablet, 1000 MG PO WITH BREAKFAST DINNE, #30 TAB 04/06/17 Glyburide* (Glyburide*) 5 Mg Tablet, 10 MG PO DAILY, #30 TAB 04/06/17 Aspirin* (Aspirin* Chew) 81 Mg Tab.chew, 81 MG PO DAILY, TAB.CHEW 04/06/17 Lisinopril* (Lisinopril*) 5 Mg Tablet, 5 MG PO DAILY, #30 TAB 04/06/17 Medications Current Medications Ondansetron HCl (Zofran Inj) 4 mg ER BRIDGE PRN IV NAUSEA/VOMITING; Start 09/10/18 at 04:00; Stop 09/11/18 at 03:59 Metoprolol Tartrate (Lopressor) 2.5 mg Q6 PRN IV ELEVATED HR; Start 09/10/18 at 03:30 IV Flush (NS 3 ml) 3 ml PER PROTOCOL IV ; Start 09/10/18 at 04:00 Ondansetron HCl (Zofran Inj) 4 mg Q6H PRN IV NAUSEA/VOMITING; Start 09/10/18 at 04:00 Aspirin (Aspirin) 81 mg DAILY PO Last administered on 09/10/18at 09:00; Admin Dose 81 MG; Start 09/10/18 at 09:00 Nitroglycerin (Nitroglycerin (Sl Tab) 0.4 Mg) 1 tab Q5M PRN SL .CHEST PAIN; Start 09/10/18 at 04:00 Acetaminophen (Tylenol Tab) 650 mg Q6H PRN PO .PAIN 1-3 OR TEMP; Start 09/10/18 at 04:00 Docusate Sodium (Colace) 100 mg Q12H PRN PO .CONSTIPATION; Start 09/10/18 at 04:00 Bisacodyl (Dulcolax) 5 mg DAILY PRN PO .CONSTIPATION; Start 09/10/18 at 04:00 Enoxaparin Sodium (Lovenox) 75 mg Q12 SC Last administered on 09/10/18at 06:30; Admin Dose 75 MG; Start 09/10/18 at 06:30 Diltiazem HCl 125 ml @ 5 mls/hr TITRATE IV Last administered on 09/10/18at 15:37; Admin Dose 12 MLS/HR; Start 09/10/18 at 09:00 Atorvastatin Calcium (Lipitor) 80 mg QHS PO ; Start 09/10/18 at 21:00 Escitalopram Oxalate (Lexapro) 10 mg DAILY PO Last administered on 09/10/18at 09:00; Admin Dose 10 MG; Start 09/10/18 at 09:00 Lisinopril (Zestril) 5 mg DAILY PO ; Start 09/10/18 at 09:00 Doxycycline Hyclate 100 mg/ Sodium Chloride 250 ml @ 250 mls/hr Q12 IVPB Last administered on 09/10/18at 10:41; Admin Dose 250 MLS/HR; Start 09/10/18 at 10:00 Diagnostic Test (Pha) (Accu-Chek) 1 ea 02 XX ; Start 09/11/18 at 02:00 Insulin Aspart (Novolog Insulin Pen) NOVOLOG *MILD* ALGORITHM WITH MEALS BEDTIME SC Last administered on 09/10/18at 17:24; Admin Dose 2 UNIT; Start 09/10/18 at 17:55 Miscellaneous Information 1 ea NOTE XX ; Start 09/10/18 at 13:00 Glucose (Glutose) 15 gm Q15M PRN PO DECREASED GLUCOSE; Start 09/10/18 at 13:00 Glucose (Glutose) 22.5 gm Q15M PRN PO DECREASED GLUCOSE; Start 09/10/18 at 13:00 Dextrose (D50w Syringe) 25 ml Q15M PRN IV DECREASED GLUCOSE; Start 09/10/18 at 13:00 Dextrose (D50w Syringe) 50 ml Q15M PRN IV DECREASED GLUCOSE; Start 09/10/18 at 13:00 Glucagon (Glucagen) 1 mg Q15M PRN IM DECREASED GLUCOSE; Start 09/10/18 at 13:00 Glucose (Glutose) 15 gm Q15M PRN BUCCAL DECREASED GLUCOSE; Start 09/10/18 at 13:00 Allergies: Coded Allergies: No Known Allergies (Verified Allergy, Unknown, 04/06/17) Past Surgical History Past Surgical Hx: no surgical history Social History Alcohol Use: none Smoking Status: Never smoker Drug Use: none Exam/Review of Systems Vital Signs Vitals Vital Signs Date Temp Pulse Resp B/P (MAP) Pulse Ox O2 O2 Flow FiO2 Time Delivery Rate 09/10/18 113 16:35 09/10/18 98.5 16 128/75 96 15:51 (92) 09/10/18 Room Air 04:46 Exam Exam General: Obese female in no acute distress HEENT: NC/AT. pupils are equal. round. NECK: NO JVD. no stridor. CV: Irregularly irregular. systolic murmur; no gallop or rubs. PULM: no wheezing . Minimal rhonchi. GI: SOFT, NT, ND, no rebound or guarding Extremity: trace B/L LE edema. no clubbing. neuro: awake and alert, OX3. Psych: calm and pleasant rectal: deferred EKG was personally reviewed in atrial fibrillation with rapid ventricular response heart rate around [address] abnormality Echocardiogram shows: Normal left ventricular systolic function. Normal left ventricular cavity size. Mild hypertrophy of the basal septum. Ejection fraction is visually estimated at 55 %. Tissue Doppler/Mitral Doppler indices are indeterminate in this study due to the presence of atrial fibrillation. There is moderate enlargement of left atrium. There is mild enlargement of right atrium. RA Pressure=3. Normal appearance and function of the mitral valve with trace physiologic regurgitation. Normal appearance of the aortic valve. No significant aortic stenosis or insufficiency. Normal appearance of the tricuspid valve. Estimated peak PA systolic pressure 32 mmHg. There is mild tricuspid regurgitation. Labs Result Diagram: 09/10/18 0615 09/10/18 0615 Results 24hrs Laboratory Tests Test 09/10/18 00:50 09/10/18 06:15 09/10/18 12:54 09/10/18 17:18 White Blood Count 8.3 # 7.6 Red Blood Count 4.63 4.26 Hemoglobin 13.5 12.4 Hematocrit 40.9 38.2 Mean Corpuscular 88.3 89.7 Volume Mean Corpuscular 29.2 29.1 Hemoglobin Mean Corpuscular 33.0 32.5 Hemoglobin Concent Red Cell 13.2 13.2 Distribution Width Platelet Count 198 215 Mean Platelet Volume 10.8 H 10.7 H Immature 0.200 0.300 Granulocytes % Neutrophils % 68.2 70.4 Lymphocytes % 23.1 22.0 Monocytes % 6.8 6.0 Eosinophils % 1.6 1.2 Basophils % 0.1 0.1 Nucleated Red Blood 0.0 0.0 Cells % Immature 0.020 0.020 Granulocytes # Neutrophils # 5.6 5.3 Lymphocytes # 1.9 1.7 Monocytes # 0.6 0.5 Eosinophils # 0.1 0.1 Basophils # 0.0 0.0 Nucleated Red Blood 0.0 0.0 Cells # Prothrombin Time 11.9 Prothrombin Time 0.9 Ratio INR International 0.87 Normalized Ratio Activated 23.9 Partial Thromboplast Time Sodium Level 143 143 Potassium Level 4.3 4.0 Chloride Level 101 105 Carbon Dioxide Level 28 31 Anion Gap 14 H 7 Blood Urea Nitrogen 14 13 Creatinine 0.62 0.68 Est Glomerular > 60 > 60 Filtrat Rate mL/min Glucose Level 125 142 Calcium Level 9.4 9.1 Troponin I < 0.012 < 0.012 < 0.012 Thyroid Stimulating 3.890 2.490 Hormone (TSH) Free Thyroxine Index 2.71 Thyroxine (T4) 10.8 Triiodothyronine 25.1 (T3) Uptake Hemoglobin A1c 7.1 H Magnesium Level 2.4 Total Bilirubin 0.4 Direct Bilirubin 0.00 Indirect Bilirubin 0.4 Aspartate Amino 17 Transf (AST/SGOT) Alanine 18 Aminotransferase (AL T/SGPT) Alkaline Phosphatase 72 Creatine Kinase 35 28 Creatine Kinase 0.9 0.8 Index Creatinine Kinase MB 0.33 < 0.22 (Mass) Total Protein 7.0 Albumin 3.8 Globulin 3.20 Albumin/Globulin 1.18 Ratio Triglycerides Level 167 H Cholesterol Level 320 H LDL Cholesterol, 264 Calculated HDL Cholesterol 23 L Cholesterol/HDL 13.9 Ratio Bedside Glucose 202 Medications Medications Current Medications Ondansetron HCl (Zofran Inj) 4 mg ER BRIDGE PRN IV NAUSEA/VOMITING; Start at 04:00; Stop 09/11/18 at 03:59 Metoprolol Tartrate (Lopressor) 2.5 mg Q6 PRN IV ELEVATED HR; Start 09/10/18 at 03:30 IV Flush (NS 3 ml) 3 ml PER PROTOCOL IV ; Start 09/10/18 at 04:00 Ondansetron HCl (Zofran Inj) 4 mg Q6H PRN IV NAUSEA/VOMITING; Start 09/10/18 at 04:00 Aspirin (Aspirin) 81 mg DAILY PO Last administered on 09/10/18at 09:00; Admin Dose 81 MG; Start 09/10/18 at 09:00 Nitroglycerin (Nitroglycerin (Sl Tab) 0.4 Mg) 1 tab Q5M PRN SL .CHEST PAIN; Start 09/10/18 at 04:00 Acetaminophen (Tylenol Tab) 650 mg Q6H PRN PO .PAIN 1-3 OR TEMP; Start 09/10/18 at 04:00 Docusate Sodium (Colace) 100 mg Q12H PRN PO .CONSTIPATION; Start 09/10/18 at 04:00 Bisacodyl (Dulcolax) 5 mg DAILY PRN PO .CONSTIPATION; Start 09/10/18 at 04:00 Enoxaparin Sodium (Lovenox) 75 mg Q12 SC Last administered on 09/10/18at 06:30; Admin Dose 75 MG; Start 09/10/18 at 06:30 Diltiazem HCl 125 ml @ 5 mls/hr TITRATE IV Last administered on 09/10/18at 15:37; Admin Dose 12 MLS/HR; Start 09/10/18 at 09:00 Atorvastatin Calcium (Lipitor) 80 mg QHS PO ; Start 09/10/18 at 21:00 Escitalopram Oxalate (Lexapro) 10 mg DAILY PO Last administered on 09/10/18at 09:00; Admin Dose 10 MG; Start 09/10/18 at 09:00 Lisinopril (Zestril) 5 mg DAILY PO ; Start 09/10/18 at 09:00 Doxycycline Hyclate 100 mg/ Sodium Chloride 250 ml @ 250 mls/hr Q12 IVPB Last administered on 09/10/18at 10:41; Admin Dose 250 MLS/HR; Start 09/10/18 at 10:00 Diagnostic Test (Pha) (Accu-Chek) 1 ea 02 XX ; Start 09/11/18 at 02:00 Insulin Aspart (Novolog Insulin Pen) NOVOLOG *MILD* ALGORITHM WITH MEALS BEDTIME SC Last administered on 09/10/18at 17:24; Admin Dose 2 UNIT; Start 09/10/18 at 17:55 Miscellaneous Information 1 ea NOTE XX ; Start 09/10/18 at 13:00 Glucose (Glutose) 15 gm Q15M PRN PO DECREASED GLUCOSE; Start 09/10/18 at 13:00 Glucose (Glutose) 22.5 gm Q15M PRN PO DECREASED GLUCOSE; Start 09/10/18 at 13:00 Dextrose (D50w Syringe) 25 ml Q15M PRN IV DECREASED GLUCOSE; Start 09/10/18 at 13:00 Dextrose (D50w Syringe) 50 ml Q15M PRN IV DECREASED GLUCOSE; Start 09/10/18 at 13:00 Glucagon (Glucagen) 1 mg Q15M PRN IM DECREASED GLUCOSE; Start 09/10/18 at 13:00 Glucose (Glutose) 15 gm Q15M PRN BUCCAL DECREASED GLUCOSE; Start 09/10/18 at 13:00 MIRLANDE LINO MD Sep 10, 2018 19:37
--- NOTE | 2018-09-10 19:49 | NUR ---
EOSS: PT IS AOX4, AMBULATES WITH ASSIST, RESPIRATIONS UNLABORED, DENIES PAIN. PT IS STILL ON CARDIZEM DRIP AT 12MG/HR. HR IS STILL AFIB UNCONTROLLED. DR. LINO AWARE AND WILL MAKE CHANGES TO MEDICATIONS. ENDORSED TO ENGRAVINGS POLISHER NURSE.
[2018-09-10] MEDS: ATORVASTATIN 80 MG TAB PO SCH (20:17)
[2018-09-10] MEDS: DILTIAZEM 60 MG TAB PO SCH (20:17)
[2018-09-10] MEDS: DIGOXIN 500 MCG INJ IV SCH (20:17)
[2018-09-11] VITALS (12 sets, daily range): BP systolic 103–143; BP diastolic 54–93; PULSE 72–124; RESP 16
[2018-09-11] MEDS: DIGOXIN 500 MCG INJ IV SCH ×3 (00:06→07:49)
[2018-09-11] MEDS: ACCU-CHEK XX SCH (01:24)
[2018-09-11] MEDS: INSULIN ASPART [NOVOLOG] 3 ML PEN SC SCH ×4 (07:55→20:56)
[2018-09-11] MEDS: DOXYCYCLINE 100 MG in SOD CHLORIDE 0.9% 250 ML IVPB SCH ×2 (09:00→20:57)
[2018-09-11] MEDS: ASPIRIN 81 MG TAB PO SCH (09:39)
[2018-09-11] MEDS: DILTIAZEM 60 MG TAB PO SCH ×3 (09:39→20:49)
[2018-09-11] MEDS: LISINOPRIL 5 MG TAB PO SCH (09:39)
[2018-09-11] MEDS: ESCITALOPRAM 10 MG TAB PO SCH (09:39)
[2018-09-11] MEDS: ENOXAPARIN 80 MG/0.8 ML SYG SC SCH ×2 (09:45→20:56)
--- NOTE | 2018-09-11 10:55 | PN ---
Date/Time of Note Date/Time of Note DATE: 09/11/18 TIME: 10:53 Assessment/Plan VTE Prophylaxis Risk score (from Ns)>0 risk: 3 [place] [facility] [place] contraindicated: other Pharmacological prophylaxis: LMWH Lines/Catheters IV Catheter Type (from [facility]): Saline Lock Assessment/Plan Hospital Course S: Patient seen by cardiology team yesterday, presently off Cardizem drip. On p.o. Cardizem with still some occasional rapid heart rates but overall improved since yesterday. Complaining of nausea. O: VS - see below PE: General: lying in bed, no acute distress HEENT: Atraumatic, normocephalic. The pupils are equal, round and reactive. Extraocular motor are intact Neck: Supple with full range of motion. No rigidity or meningismus Chest: Nontender Lungs: Clear to auscultation bilaterally no crackles rales or wheezing, coughing Heart: Irregularly irregular Abdomen: Soft , nontender, nondistended , bowel sounds are present. No guarding no rebound tenderness Extremities: Normal to inspection, no edema no cyanosis Neurologic: No focal deficits Hospital Course: 67-year-old female being admitted to the telemetry floor for: #1 rapid A. fib with RVR: Overall appears to be rate controlled today, on p.o. Cardizem presently. Has ruled out for ACS. -For now continue Cardizem PO -Continue Lovenox for now but will switch to either Xarelto or Eliquis depending on what her insurance covers, aspirin, follow-up echocardiogram results and recommendations from cardiology team -Continue PT consult. #2 upper respiratory infection: Doxycycline 100 mg twice daily times 7 days #3 hypertension: Continue home medication #4 diabetes mellitus: A1c was 7.1 -Continue ISS #5 High cholesterol: Lipid panel shows elevated cholesterol levels -Continue statin #6 depression: Continue Lexapro Result Diagram: 09/11/1862709/11/18 0628 Results 24hrs Laboratory Tests Test 09/10/18 12:54 09/10/18 17:18 09/10/18 20:20 09/11/18 01:14 Creatine Kinase 28 Creatine Kinase 0.8 Index Creatinine Kinase MB < 0.22 (Mass) Troponin I < 0.012 Bedside Glucose 202 185 162 Test 09/11/18 06:28 09/11/18 07:47 White Blood Count 8.1 Red Blood Count 4.51 Hemoglobin 13.2 Hematocrit 40.3 Mean Corpuscular 89.4 Volume Mean Corpuscular 29.3 Hemoglobin Mean Corpuscular 32.8 Hemoglobin Concent Red Cell 13.0 Distribution Width Platelet Count 196 Mean Platelet Volume 10.6 H Immature 0.500 H Granulocytes % Neutrophils % 75.6 Lymphocytes % 16.9 Monocytes % 5.8 Eosinophils % 1.1 Basophils % 0.1 Nucleated Red Blood 0.0 Cells % Immature 0.040 H Granulocytes # Neutrophils # 6.1 Lymphocytes # 1.4 Monocytes # 0.5 Eosinophils # 0.1 Basophils # 0.0 Nucleated Red Blood 0.0 Cells # Sodium Level 139 Potassium Level 4.9 Chloride Level 101 Carbon Dioxide Level 29 Anion Gap 9 Blood Urea Nitrogen 11 Creatinine 0.66 Est Glomerular > 60 Filtrat Rate mL/min Glucose Level 199 Calcium Level 9.4 Phosphorus Level 3.3 Magnesium Level 1.9 Bedside Glucose 192 Exam/Review of Systems Exam Vitals Vital Signs Date Temp Pulse Resp B/P (MAP) Pulse Ox O2 O2 Flow FiO2 Time Delivery Rate 09/11/18 124 08:23 09/11/18 99.7 16 131/93 93 07:42 (106) 09/10/18 Room Air 04:46 Intake and Output 09/10/18 09/10/18 09/11/18 1515:00 23:00 07:00 IntakeIntake Total 1325 ml 300 ml OutputOutput Total 3 ml 4 ml BalanceBalance 1322 ml 296 ml Results Results 24hrs Laboratory Tests Test 09/10/18 12:54 09/10/18 17:18 09/10/18 20:20 09/11/18 01:14 Creatine Kinase 28 Creatine Kinase 0.8 Index Creatinine Kinase MB < 0.22 (Mass) Troponin I < 0.012 Bedside Glucose 202 185 162 Test 09/11/18 06:28 09/11/18 07:47 White Blood Count 8.1 Red Blood Count 4.51 Hemoglobin 13.2 Hematocrit 40.3 Mean Corpuscular 89.4 Volume Mean Corpuscular 29.3 Hemoglobin Mean Corpuscular 32.8 Hemoglobin Concent Red Cell 13.0 Distribution Width Platelet Count 196 Mean Platelet Volume 10.6 H Immature 0.500 H Granulocytes % Neutrophils % 75.6 Lymphocytes % 16.9 Monocytes % 5.8 Eosinophils % 1.1 Basophils % 0.1 Nucleated Red Blood 0.0 Cells % Immature 0.040 H Granulocytes # Neutrophils # 6.1 Lymphocytes # 1.4 Monocytes # 0.5 Eosinophils # 0.1 Basophils # 0.0 Nucleated Red Blood 0.0 Cells # Sodium Level 139 Potassium Level 4.9 Chloride Level 101 Carbon Dioxide Level 29 Anion Gap 9 Blood Urea Nitrogen 11 Creatinine 0.66 Est Glomerular > 60 Filtrat Rate mL/min Glucose Level 199 Calcium Level 9.4 Phosphorus Level 3.3 Magnesium Level 1.9 Bedside Glucose 192 Medications Medication Current Medications Metoprolol Tartrate (Lopressor) 2.5 mg Q6 PRN IV ELEVATED HR; Start 09/10/18 at 03:30 IV Flush (NS 3 ml) 3 ml PER PROTOCOL IV ; Start 09/10/18 at 04:00 Aspirin (Aspirin) 81 mg DAILY PO Last administered on 09/11/18at 09:39; Admin Dose 81 MG; Start 09/10/18 at 09:00 Nitroglycerin (Nitroglycerin (Sl Tab) 0.4 Mg) 1 tab Q5M PRN SL .CHEST PAIN; Start 09/10/18 at 04:00 Acetaminophen (Tylenol Tab) 650 mg Q6H PRN PO .PAIN 1-3 OR TEMP; Start 09/10/18 at 04:00 Docusate Sodium (Colace) 100 mg Q12H PRN PO .CONSTIPATION; Start 09/10/18 at 04:00 Bisacodyl (Dulcolax) 5 mg DAILY PRN PO .CONSTIPATION; Start 09/10/18 at 04:00 Enoxaparin Sodium (Lovenox) 75 mg Q12 SC Last administered on 09/11/18at 09:45; Admin Dose 75 MG; Start 09/10/18 at 06:30 Diltiazem HCl 125 ml @ 5 mls/hr TITRATE IV Last administered on 09/10/18at 15:37; Admin Dose 12 MLS/HR; Start 09/10/18 at 09:00 Atorvastatin Calcium (Lipitor) 80 mg QHS PO Last administered on 09/10/18at 20:17; Admin Dose 80 MG; Start 09/10/18 at 21:00 Escitalopram Oxalate (Lexapro) 10 mg DAILY PO Last administered on 09/11/18at 09:39; Admin Dose 10 MG; Start 09/10/18 at 09:00 Lisinopril (Zestril) 5 mg DAILY PO Last administered on 09/11/18at 09:39; Admin Dose 5 MG; Start 09/10/18 at 09:00 Doxycycline Hyclate 100 mg/ Sodium Chloride 250 ml @ 250 mls/hr Q12 IVPB Last administered on 09/11/18at 09:00; Admin Dose 250 MLS/HR; Start 09/10/18 at 10:00 Diagnostic Test (Pha) (Accu-Chek) 1 ea 02 XX ; Start 09/11/18 at 02:00 Insulin Aspart (Novolog Insulin Pen) NOVOLOG *MILD* ALGORITHM WITH MEALS BEDTIME SC Last administered on 09/11/18at 07:55; Admin Dose 2 UNIT; Start 09/10/18 at 17:55 Miscellaneous Information 1 ea NOTE XX ; Start 09/10/18 at 13:00 Glucose (Glutose) 15 gm Q15M PRN PO DECREASED GLUCOSE; Start 09/10/18 at 13:00 Glucose (Glutose) 22.5 gm Q15M PRN PO DECREASED GLUCOSE; Start 09/10/18 at 13:00 Dextrose (D50w Syringe) 25 ml Q15M PRN IV DECREASED GLUCOSE; Start 09/10/18 at 13:00 Dextrose (D50w Syringe) 50 ml Q15M PRN IV DECREASED GLUCOSE; Start 09/10/18 at 13:00 Glucagon (Glucagen) 1 mg Q15M PRN IM DECREASED GLUCOSE; Start 09/10/18 at 13:00 Glucose (Glutose) 15 gm Q15M PRN BUCCAL DECREASED GLUCOSE; Start 09/10/18 at 13:00 Diltiazem HCl (Cardizem) 60 mg TID PO Last administered on 09/11/18at 09:39; Admin Dose 60 MG; Start 09/10/18 at 21:00 Trimethobenzamide HCl (Tigan) 200 mg Q6H PRN IM NAUSEA AND/OR VOMITING; Start 09/11/18 at 11:00 Ondansetron HCl 8 mg/Sodium Chloride 54 ml @ 216 mls/hr Q6H PRN IV NAUSEA AN D/OR VOMITING; Start 09/11/18 at 11:00 LACHO PATTON Sep 11, 2018 10:55
[2018-09-11] MEDS ORDERED: CEPASTAT LOZENGE MT PRN (11:00)
[2018-09-11] MEDS ORDERED: TRIMETHOBENZAMIDE 100 MG/ML VIAL IM PRN (11:00)
[2018-09-11] MEDS ORDERED: ONDANSETRON INJ 8 MG in SOD CHLORIDE 0.9% 50 ML IV PRN (11:00)
--- NOTE | 2018-09-11 11:42 | NUR ---
ANAND NOTES: S/W JULISA (FINANCIAL COUNSELOR) AND HE HAS CONFIRMED THAT PT HAS PENDING MEDICAL AND PT/FAMILY WILL NEED TO SIGN A FORM TO EXPEDITE APPROVAL FOR MEDI-SARWAT. JULISA TO CONTACT PT/FAMILY FOR THE SIGNATURE. RADHA KINNEY, RNCM [phone]
--- NOTE | 2018-09-11 14:00 | NUR ---
PT EVALUATION NOTE: Patient is a 67 year old female admitted to [facility] after presenting to the ER on 09/07/18 with 2-3 days of left-sided chest discomfort and palpitations.n the emergency department she was found to have atrial fibrillation with rapid ventricular response. She was started on a Cardizem drip. PMH: dyslipidemia, depression, HTN, DM PLOF: Patient lives with her daughter in a second floor apartment, no elevator access, 11 stairs to access the apartment. Prior to hospitalization, patient was supervised with ambulation without an assistive device. Patient states that she doesn't walk alone. [place] [employer] rep used. CLOF: Tamie GUY cleared patient for PT evaluation. Patient agreeable to PT evaluation, c/o chest and back pain rated at 7/10. Received patient in supine position in bed. Patient educated on safety awareness, fall prevention and purpose of PT evaluation. Patient able to come to sitting at the EOB with supervision, denied dizziness in sitting however c/o nausea. Sit to stand with SBA without assistive device. Gait training x 120 feet with CGA without assistive device. Patient somewhat unsteady during ambulation however no loss of balance. After ambulation HR 94. Patient returned to bed after ambulation, all needs met, call light within reach, bed alarm reset. Tamie GUY notified of patient's status at the end of the session. PT RECOMMENDATIONS: Patient will benefit from skilled inpatient PT intervention to address strength, balance, safety and functional mobility. Anticipate discharge home with family assistance once cleared by MD. No DME needs anticipated at this time.
[2018-09-11] MEDS: GUAIFENESIN 20 MG/ML 5ML CUP PO PRN ×2 (15:15→21:30)
[2018-09-11] MEDS ORDERED: ONDANSETRON 4 MG INJ IV PRN (16:00)
--- NOTE | 2018-09-11 16:58 | CONS ---
Consult Date/Type/Reason Admit Date/Time Sep 10, 2018 at 03:32 Initial Consult Date 09/10/18 Type of Consultation: cv Requesting Provider: ERIC TORIBIO Date/Time of Note DATE: 09/11/18 TIME: 16:55 Subjective Cardiology follow-up progress note Subjective: Discussed with the staff and telemetry was reviewed. Patient remains in atrial fibrillation with heart rate is under good control now. She complains of mild chest wall tenderness when she coughs only. No bleeding Objective General: Obese female in no acute distress HEENT: NC/AT. pupils are equal. round. NECK: NO JVD. no stridor. CV: Irregularly irregular. systolic murmur; no gallop or rubs. PULM: no wheezing . Minimal rhonchi. GI: SOFT, NT, ND, no rebound or guarding Extremity: trace B/L LE edema. no clubbing. neuro: awake and alert, OX3. Psych: calm and pleasant rectal: deferred EKG was personally reviewed in atrial fibrillation with rapid ventricular response heart rate around [address] abnormality Echocardiogram shows: Normal left ventricular systolic function. Normal left ventricular cavity size. Mild hypertrophy of the basal septum. Ejection fraction is visually estimated at 55 %. Tissue Doppler/Mitral Doppler indices are indeterminate in this study due to the presence of atrial fibrillation. There is moderate enlargement of left atrium. There is mild enlargement of right atrium. RA Pressure=3. Normal appearance and function of the mitral valve with trace physiologic regurgitation. Normal appearance of the aortic valve. No significant aortic stenosis or insufficiency. Normal appearance of the tricuspid valve. Estimated peak PA systolic pressure 32 mmHg. There is mild tricuspid regurgitation. Labs Objective Vitals Vital Signs Date Temp Pulse Resp B/P (MAP) Pulse Ox O2 O2 Flow FiO2 Time Delivery Rate 09/11/18 75 16:12 09/11/18 97.9 16 103/54 91 15:34 (70) 09/10/18 Room Air 04:46 Intake and Output 09/10/18 09/10/18 09/11/18 1515:00 23:00 07:00 IntakeIntake Total 1325 ml 300 ml OutputOutput Total 3 ml 4 ml BalanceBalance 1322 ml 296 ml Results/Medications Result Diagram: 09/11/18 0628 09/11/18 0628 Results 24 hrs Laboratory Tests Test 09/10/18 17:18 09/10/18 20:20 09/11/18 01:14 09/11/18 06:28 Bedside Glucose 202 185 162 White Blood Count 8.1 Red Blood Count 4.51 Hemoglobin 13.2 Hematocrit 40.3 Mean Corpuscular 89.4 Volume Mean Corpuscular 29.3 Hemoglobin Mean Corpuscular 32.8 Hemoglobin Concent Red Cell 13.0 Distribution Width Platelet Count 196 Mean Platelet Volume 10.6 H Immature 0.500 H Granulocytes % Neutrophils % 75.6 Lymphocytes % 16.9 Monocytes % 5.8 Eosinophils % 1.1 Basophils % 0.1 Nucleated Red Blood 0.0 Cells % Immature 0.040 H Granulocytes # Neutrophils # 6.1 Lymphocytes # 1.4 Monocytes # 0.5 Eosinophils # 0.1 Basophils # 0.0 Nucleated Red Blood 0.0 Cells # Sodium Level 139 Potassium Level 4.9 Chloride Level 101 Carbon Dioxide Level 29 Anion Gap 9 Blood Urea Nitrogen 11 Creatinine 0.66 Est Glomerular > 60 Filtrat Rate mL/min Glucose Level 199 Calcium Level 9.4 Phosphorus Level 3.3 Magnesium Level 1.9 Test 09/11/18 07:47 09/11/18 12:16 Bedside Glucose 192 160 Home Meds Active Scripts Acetaminophen* (Tylophen*) 500 Mg Capsule, 1 CAP PO Q6H PRN for PAIN AND OR ELEVATED TEMP, #20 CAP Prov:MADHU DORSEY MD 04/13/17 Reported Medications Atorvastatin* (Atorvastatin*) 80 Mg Tablet, 80 MG PO QHS, #30 TAB 04/06/17 Escitalopram Oxalate* (Lexapro*) 10 Mg Tablet, 10 MG PO DAILY, #30 TAB 04/06/17 Metformin Hcl* (Metformin Hcl*) 1,000 Mg Tablet, 1000 MG PO WITH BREAKFAST DINNE, #30 TAB 04/06/17 Glyburide* (Glyburide*) 5 Mg Tablet, 10 MG PO DAILY, #30 TAB 04/06/17 Aspirin* (Aspirin* Chew) 81 Mg Tab.chew, 81 MG PO DAILY, TAB.CHEW 04/06/17 Lisinopril* (Lisinopril*) 5 Mg Tablet, 5 MG PO DAILY, #30 TAB 04/06/17 Medications Current Medications Metoprolol Tartrate (Lopressor) 2.5 mg Q6 PRN IV ELEVATED HR; Start 09/10/18 at 03:30 IV Flush (NS 3 ml) 3 ml PER PROTOCOL IV ; Start 09/10/18 at 04:00 Aspirin (Aspirin) 81 mg DAILY PO Last administered on 09/11/18at 09:39; Admin Dose 81 MG; Start 09/10/18 at 09:00 Nitroglycerin (Nitroglycerin (Sl Tab) 0.4 Mg) 1 tab Q5M PRN SL .CHEST PAIN; Start 09/10/18 at 04:00 Acetaminophen (Tylenol Tab) 650 mg Q6H PRN PO .PAIN 1-3 OR TEMP; Start 09/10/18 at 04:00 Docusate Sodium (Colace) 100 mg Q12H PRN PO .CONSTIPATION; Start 09/10/18 at 04:00 Bisacodyl (Dulcolax) 5 mg DAILY PRN PO .CONSTIPATION; Start 09/10/18 at 04:00 Enoxaparin Sodium (Lovenox) 75 mg Q12 SC Last administered on 09/11/18at 09:45; Admin Dose 75 MG; Start 09/10/18 at 06:30 Diltiazem HCl 125 ml @ 5 mls/hr TITRATE IV Last administered on 09/10/18at 15:37; Admin Dose 12 MLS/HR; Start 09/10/18 at 09:00 Atorvastatin Calcium (Lipitor) 80 mg QHS PO Last administered on 09/10/18at 20:17; Admin Dose 80 MG; Start 09/10/18 at 21:00 Escitalopram Oxalate (Lexapro) 10 mg DAILY PO Last administered on 09/11/18at 09:39; Admin Dose 10 MG; Start 09/10/18 at 09:00 Lisinopril (Zestril) 5 mg DAILY PO Last administered on 09/11/18 09:39; Admin Dose 5 MG; Start 09/10/18 at 09:00 Doxycycline Hyclate 100 mg/ Sodium Chloride 250 ml @ 250 mls/hr Q12 IVPB Last administered on 09/11/18at 09:00; Admin Dose 250 MLS/HR; Start 09/10/18 at 10:00 Diagnostic Test (Pha) (Accu-Chek) 1 ea 02 XX ; Start 09/11/18 at 02:00 Insulin Aspart (Novolog Insulin Pen) NOVOLOG *MILD* ALGORITHM WITH MEALS BEDTIME SC Last administered on 09/11/18at 12:24; Admin Dose 2 UNIT; Start 09/10/18 at 17:55 Miscellaneous Information 1 ea NOTE XX ; Start 09/10/18 at 13:00 Glucose (Glutose) 15 gm Q15M PRN PO DECREASED GLUCOSE; Start 09/10/18 at 13:00 Glucose (Glutose) 22.5 gm Q15M PRN PO DECREASED GLUCOSE; Start 09/10/18 at 13:00 Dextrose (D50w Syringe) 25 ml Q15M PRN IV DECREASED GLUCOSE; Start 09/10/18 at 13:00 Dextrose (D50w Syringe) 50 ml Q15M PRN IV DECREASED GLUCOSE; Start 09/10/18 at 13:00 Glucagon (Glucagen) 1 mg Q15M PRN IM DECREASED GLUCOSE; Start 09/10/18 at 13:00 Glucose (Glutose) 15 gm Q15M PRN BUCCAL DECREASED GLUCOSE; Start 09/10/18 at 13:00 Diltiazem HCl (Cardizem) 60 mg TID PO Last administered on 09/11/18at 12:22; Admin Dose 60 MG; Start 09/10/18 at 21:00 Trimethobenzamide HCl (Tigan) 200 mg Q6H PRN IM NAUSEA AND/OR VOMITING; Start 09/11/18 at 11:00 Ondansetron HCl 8 mg/Sodium Chloride 54 ml @ 216 mls/hr Q6H PRN IV NAUSEA AND/OR VOMITING; Start 09/11/18 at 11:00 Phenol (Cepastat Lozenge) 1 lozenge Q1H PRN MT COUGH; Start 09/11/18 at 11:00 Guaifenesin (Robitussin Liquid Cup) 200 mg Q4H PRN PO COUGH Last administered on 09/11/18at 15:15; Admin Dose 200 MG; Start 09/11/18 at 11:00 Assessment/Plan Hospital Course (Demo Recall) 1. Atrial fibrillation rapid ventricular response : Currently heart is under good control 2. chest pain: due to above and has resolved now 3. Diabetes 4. Severe dyslipidemia 5. Bronchitis Recommendations: Continue with anticoagulation and consider switching to p.o. Xarelto or Eliquis Continue with p.o. Cardizem as well asdigoxin. [place] was ruled out Respiratory care as per internal medicine Continue high-dose statin. We will add Zetia as well Telemetry monitoring for now I recommend outpatient stress testing once her pulmonary status improved and the heart rate is under good control Okay to discharge from cardiac standpoint on medical therapy Thank you for his referral will continue to follow along with you MIRLANDE LINO MD [facility] MIRLANDE LINO MD Sep 11, 2018 16:58
--- NOTE | 2018-09-11 18:32 | NUR ---
EOSS: NO ACUTE DISTRESS DURING DAY SHIFT. PT IS AOX4, STEADY GAIT, RESPIRATIONS UNLABORED. PT'S HR HAS BEEN BETTER CONTROLLED TODAY WITH PO MEDS. PT'S C/O PAIN WHEN SHE COUGHS-PAIN ON LEFT SIDE OF CHEST AND RADIATING TO BACK. MD AWARE. GAVE PT COUGH MEDICINE. PT HAS BEEN RESTING IN BED FOR MOST OF THE DAY. PT WORKED WITH PHYSICAL THERAPY. ALL MEDICATIONS HAVE BEEN GIVEN SCHEDULED. ALL PT'S NEEDS HAVE BEEN MET. WILL ENDORSE TO PROPERTY COORDINATOR NURSE.
[2018-09-11] MEDS: ATORVASTATIN 80 MG TAB PO SCH (20:49)
[2018-09-12] VITALS (8 sets, daily range): BP systolic 102–129; BP diastolic 62–79; PULSE 69–147; RESP 16–18
[2018-09-12] MEDS: ACCU-CHEK XX SCH (01:05)
--- NOTE | 2018-09-12 06:23 | NUR ---
No acute changes during the shift, pt denied any pain, cough was well controlled with the medication, pt resting most of the night, HR 90's- low 100's, will endorse to oncoming RN
[2018-09-12] MEDS: INSULIN ASPART [NOVOLOG] 3 ML PEN SC SCH ×3 (08:02→17:57)
--- NOTE | 2018-09-12 08:03 | CONS ---
Consult Date/Type/Reason Admit Date/Time Sep 10, 2018 at 03:32 Initial Consult Date 09/10/18 Type of Consultation: cv Requesting Provider: ERIC TORIBIO Date/Time of Note DATE: 09/12/18 TIME: 08:02 Subjective Cardiology follow-up progress note Subjective: Discussed with the staff and telemetry was reviewed. Patient remains in atrial fibrillation with heart rate is under good control now. She complains of mild chest wall tenderness when she coughs only. No bleeding Objective General: Obese female in no acute distress HEENT: NC/AT. pupils are equal. round. NECK: NO JVD. no stridor. CV: Irregularly irregular. systolic murmur; no gallop or rubs. PULM: no wheezing . Minimal rhonchi. GI: SOFT, NT, ND, no rebound or guarding Extremity: trace B/L LE edema. no clubbing. neuro: awake and alert, OX3. Psych: calm and pleasant rectal: deferred EKG was personally reviewed in atrial fibrillation with rapid ventricular response heart rate around [address] abnormality Echocardiogram shows: Normal left ventricular systolic function. Normal left ventricular cavity size. Mild hypertrophy of the basal septum. Ejection fraction is visually estimated at 55 %. Tissue Doppler/Mitral Doppler indices are indeterminate in this study due to the presence of atrial fibrillation. There is moderate enlargement of left atrium. There is mild enlargement of right atrium. RA Pressure=3. Normal appearance and function of the mitral valve with trace physiologic regurgitation. Normal appearance of the aortic valve. No significant aortic stenosis or insufficiency. Normal appearance of the tricuspid valve. Estimated peak PA systolic pressure 32 mmHg. There is mild tricuspid regurgitation. Objective Vitals Vital Signs Date Temp Pulse Resp B/P (MAP) Pulse Ox O2 O2 Flow FiO2 Time Delivery Rate 09/12/18 97.6 98 16 129/79 91 04:01 (96) 09/10/18 Room Air 04:46 Intake and Output 09/11/18 09/11/18 09/12/18 1515:00 23:00 07:00 IntakeIntake Total 1150 ml 400 ml OutputOutput Total 5 ml 4 ml BalanceBalance 1145 ml 396 ml Results/Medications Result Diagram: 09/11/18 0628 09/11/18 0628 Results 24 hrs Laboratory Tests Test 09/11/18 12:16 1/29/19 17:22 09/11/18 20:51 09/12/18 01:02 Bedside Glucose 160 159 224 H 187 Home Meds Active Scripts Acetaminophen* (Tylophen*) 500 Mg Capsule, 1 CAP PO Q6H PRN for PAIN AND OR ELEVATED TEMP, #20 CAP Prov:MADHU DORSEY MD 04/13/17 Reported Medications Atorvastatin* (Atorvastatin*) 80 Mg Tablet, 80 MG PO QHS, #30 TAB 04/06/17 Escitalopram Oxalate* (Lexapro*) 10 Mg Tablet, 10 MG PO DAILY, #30 TAB 04/06/17 Metformin Hcl* (Metformin Hcl*) 1,000 Mg Tablet, 1000 MG PO WITH BREAKFAST DINNE, #30 TAB 04/06/17 Glyburide* (Glyburide*) 5 Mg Tablet, 10 MG PO DAILY, #30 TAB 04/06/17 Aspirin* (Aspirin* Chew) 81 Mg Tab.chew, 81 MG PO DAILY, TAB.CHEW 04/06/17 Lisinopril* (Lisinopril*) 5 Mg Tablet, 5 MG PO DAILY, #30 TAB 04/06/17 Medications Current Medications Metoprolol Tartrate (Lopressor) 2.5 mg Q6 PRN IV ELEVATED HR; Start 09/10/18 at 03:30 IV Flush (NS 3 ml) 3 ml PER PROTOCOL IV ; Start 09/10/18 at 04:00 Aspirin (Aspirin) 81 mg DAILY PO Last administered on 09/11/18at 09:39; Admin Dose 81 MG; Start 09/10/18 at 09:00 Nitroglycerin (Nitroglycerin (Sl Tab) 0.4 Mg) 1 tab Q5M PRN SL .CHEST PAIN; Start 09/10/18 at 04:00 Acetaminophen (Tylenol Tab) 650 mg Q6H PRN PO .PAIN 1-3 OR TEMP; Start 09/10/18 at 04:00 Docusate Sodium (Colace) 100 mg Q12H PRN PO .CONSTIPATION; Start 09/10/18 at 04:00 Bisacodyl (Dulcolax) 5 mg DAILY PRN PO .CONSTIPATION; Start 09/10/18 at 04:00 Enoxaparin Sodium (Lovenox) 75 mg Q12 SC Last administered on 09/11/18at 20:56; Admin Dose 75 MG; Start 09/10/18 at 06:30 Diltiazem HCl 125 ml @ 5 mls/hr TITRATE IV Last administered on 09/10/18at 15:37; Admin Dose 12 MLS/HR; Start 09/10/18 at 09:00 Atorvastatin Calcium (Lipitor) 80 mg QHS PO Last administered on 09/11/18at 20:49; Admin Dose 80 MG; Start 09/10/18 at 21:00 Escitalopram Oxalate (Lexapro) 10 mg DAILY PO Last administered on 09/11/18at 09:39; Admin Dose 10 MG; Start 09/10/18 at 09:00 Lisinopril (Zestril) 5 mg DAILY PO Last administered on 09/11/18 09:39; Admin Dose 5 MG; Start 09/10/18 at 09:00 Doxycycline Hyclate 100 mg/ Sodium Chloride 250 ml @ 250 mls/hr Q12 IVPB Last administered on 09/11/18at 20:57; Admin Dose 250 MLS/HR; Start 09/10/18 at 10:00 Diagnostic Test (Pha) (Accu-Chek) 1 ea 02 XX ; Start 09/11/18 at 02:00 Insulin Aspart (Novolog Insulin Pen) NOVOLOG *MILD* ALGORITHM WITH MEALS BEDTIME SC Last administered on 09/11/18at 20:56; Admin Dose 2 UNIT; Start 09/10/18 at 17:55 Miscellaneous Information 1 ea NOTE XX ; Start 09/10/18 at 13:00 Glucose (Glutose) 15 gm Q15M PRN PO DECREASED GLUCOSE; Start 09/10/18 at 13:00 Glucose (Glutose) 22.5 gm Q15M PRN PO DECREASED GLUCOSE; Start 09/10/18 at 13:00 Dextrose (D50w Syringe) 25 ml Q15M PRN IV DECREASED GLUCOSE; Start 09/10/18 at 13:00 Dextrose (D50w Syringe) 50 ml Q15M PRN IV DECREASED GLUCOSE; Start 09/10/18 at 13:00 Glucagon (Glucagen) 1 mg Q15M PRN IM DECREASED GLUCOSE; Start 09/10/18 at 13:00 Glucose (Glutose) 15 gm Q15M PRN BUCCAL DECREASED GLUCOSE; Start 09/10/18 at 13:00 Diltiazem HCl (Cardizem) 60 mg TID PO Last administered on 09/11/18at 20:49; Admin Dose 60 MG; Start 09/10/18 at 21:00 Trimethobenzamide HCl (Tigan) 200 mg Q6H PRN IM NAUSEA AND/OR VOMITING; Start 09/11/18 at 11:00 Ondansetron HCl 8 mg/Sodium Chloride 54 ml @ 216 mls/hr Q6H PRN IV NAUSEA AND/OR VOMITING; Start 09/11/18 at 11:00 Phenol (Cepastat Lozenge) 1 lozenge Q1H PRN MT COUGH Last administered on 09/11/18at 21:30; Admin Dose 1 LOZENGE; Start 09/11/18 at 11:00 Guaifenesin (Robitussin Liquid Cup) 200 mg Q4H PRN PO COUGH Last administered on 09/11/18 21:30; Admin Dose 200 MG; Start 09/11/18 at 11:00 Assessment/Plan Hospital Course (Demo Recall) 1. Atrial fibrillation rapid ventricular response : Currently heart is under good control 2. chest pain: due to above and has resolved now 3. Diabetes 4. Severe dyslipidemia 5. Bronchitis Recommendations: Continue with anticoagulation and switch p.o. Xarelto or Eliquis Continue with p.o. Cardizem as well as digoxin.doses to be adjusted as outpt [place] was ruled out Respiratory care as per internal medicine Continue high-dose statin. We will add Zetia as well Telemetry monitoring for now I recommend outpatient stress testing once her pulmonary status improved and the heart rate is under good control Okay to discharge from cardiac standpoint on medical therapy OK FOR DC from cardiac stand point Thank you for his referral will continue to follow along with you MIRLANDE LINO MD [facility] MIRLANDE LINO MD Sep 12, 2018 08:03
[2018-09-12] MEDS: DOXYCYCLINE 100 MG in SOD CHLORIDE 0.9% 250 ML IVPB SCH (09:48)
[2018-09-12] MEDS: ESCITALOPRAM 10 MG TAB PO SCH (09:48)
[2018-09-12] MEDS: ASPIRIN 81 MG TAB PO SCH (09:50)
[2018-09-12] MEDS: LISINOPRIL 5 MG TAB PO SCH (09:50)
[2018-09-12] MEDS: DILTIAZEM 60 MG TAB PO SCH ×2 (09:50→13:01)
[2018-09-12] MEDS: ENOXAPARIN 80 MG/0.8 ML SYG SC SCH (09:58)
--- NOTE | 2018-09-12 11:01 | PDOCDIS ---
Discharge Instructions CONDITION [id number] Patient Condition: [id number] Stable HOME CARE INSTRUCTIONS: [id number] Diet Instructions: [id number] Low Fat /Cholesterol ACTIVITY: [id number] Activity Restrictions: [id number] Slowly Increase Activity Rest between Activity Avoid heavy lifting FOLLOW UP/APPOINTMENTS Follow-up Plan Please take your medications as prescribed, see your doctor in the clinic in the next 1 week. LACHO PATTON Sep 12, 2018 11:01
[2018-09-12] MEDS ORDERED: BENZ1LOZ4 MT (11:04)
[2018-09-12] MEDS ORDERED: DILT60TA29 PO (11:04)
[2018-09-12] MEDS ORDERED: DIGO250T PO (11:04)
[2018-09-12] MEDS ORDERED: APIX5TAB PO (11:04)
[2018-09-12] MEDS ORDERED: DOXY100T21 PO (11:09)
--- NOTE | 2018-09-12 11:11 | DS ---
Date/Time of Note Date/Time of Note DATE: 09/12/18 TIME: 11:05 Discharge Summary Admission/Discharge Info Admit Date/Time Sep 10, 2018 at 03:32 Discharge Date/Time Discharge Diagnosis #1 rapid A. fib with RVR: Improved, ruled out for ACS-started on anticoagulation per cardiology recommendations and elevated chads 2 score, also new other p.o. cardiac medications #2 upper respiratory infection: Improving ys #3 hypertension #4 diabetes mellitus: A1c was 7.1 #5 High cholesterol: Lipid panel shows elevated cholesterol levels -Continue statin #6 depression: Continue Lexapro Patient Condition: Stable Procedures 2D echo: Conclusions Normal left ventricular systolic function. Normal left ventricular cavity size. Mild hypertrophy of the basal septum. Ejection fraction is visually estimated at 55 %. Tissue Doppler/Mitral Doppler indices are indeterminate in this study due to the presence of atrial fibrillation. There is moderate enlargement of left atrium. There is mild enlargement of right atrium. RA Pressure=3. Normal appearance and function of the mitral valve with trace physiologic regurgitation. Normal appearance of the aortic valve. No significant aortic stenosis or insufficiency. Normal appearance of the tricuspid valve. Estimated peak PA systolic pressure 32 mmHg. There is mild tricuspid regurgitation. Hx of Present Illness 67-year-old female who presents to the emergency room with 2-3 days of left- sided chest discomfort and palpitations. She reported that for the last couple days she has been having a cough along with nasal symptoms and head pressure. Denies any fevers. She also reported that she did feel slightly dizzy but denies any falls. In the emergency department she was found to be in A. fib with rapid ventricular response. She denies any leg swelling, pleuritic pain or shortness of breath. In the emergency department she was found to have atrial fibrillation with rapid ventricular response. She was started on a Cardizem drip, currently her heart rate at the bedside is fluctuating between 97-110 on 20 mics of Cardizem drip. Hospital Course So patient was admitted to telemetry floor. Seen by cardiology team during this hospital stay. Her atrial fibrillation with RVR became rate controlled. She had new p.o. cardiac medications started after her IV diltiazem was stopped given her rate control now. She had less chest pain or shortness of breath symptoms. She ruled out for acute coronary syndrome as well. She continued on appropriate statin medications for high cholesterol. She was also placed on doxycycline for mild upper respiratory infection which improved, and also given antitussive medications for her cough symptoms which also improved. Over the course of her hospital stay her symptoms improved, she was able to ambulate, tolerated p.o. diet. Once her insurance is confirmed and we can confirm that it will cover her Eliquis (she was started on this based on cardiology recommendations and elevated chads 2 score), she will be discharged with that medication and others listed below and in improved condition. Again see below for list of discharge medications. Home Meds Active Scripts Apixaban* (Eliquis*) 5 Mg Tablet, 5 MG PO BID, #60 TAB 3 Refills Prov:ITA PATTONP S. 09/12/18 Benzocaine/Menthol (SORE THROAT LOZENGE) 1 Each Lozenge, 1 LOZENGE MT Q1H PRN for COUGH, #1 BOTTLE Prov:LACHO PATTON S. 09/12/18 Diltiazem Hcl* (Cardizem*) 60 Mg Tablet, 60 MG PO TID, #90 TAB 1 Refill Prov:RAITA GARRETTP S. 09/12/18 Digoxin* (Digitek*) 250 Mcg Tablet, 0.25 MG PO DAILY@13, #30 TAB 1 Refill Prov:LACHO PATTON S. 09/12/18 Acetaminophen* (Tylophen*) 500 Mg Capsule, 1 CAP PO Q6H PRN for PAIN AND OR ELEVATED TEMP, #20 CAP Prov:MADHU DORSEY MD 04/13/17 Reported Medications Atorvastatin* (Atorvastatin*) 80 Mg Tablet, 80 MG PO QHS, #30 TAB 04/06/17 Escitalopram Oxalate* (Lexapro*) 10 Mg Tablet, 10 MG PO DAILY, #30 TAB 04/06/17 Metformin Hcl* (Metformin Hcl*) 1,000 Mg Tablet, 1000 MG PO WITH BREAKFAST DINNE, #30 TAB 04/06/17 Glyburide* (Glyburide*) 5 Mg Tablet, 10 MG PO DAILY, #30 TAB 04/06/17 Aspirin* (Aspirin* Chew) 81 Mg Tab.chew, 81 MG PO DAILY, TAB.CHEW 04/06/17 Lisinopril* (Lisinopril*) 5 Mg Tablet, 5 MG PO DAILY, #30 TAB 04/06/17 Follow-up Plan Please take your medications as prescribed, see your doctor in the clinic in the next 1 week. Primary Care Provider Not On Staff Doctor Time spent on discharge: > 30 minutes Pending Labs Laboratory Tests Test 09/11/18 12:16 09/11/18 17:22 09/11/18 20:51 09/12/18 01:02 Bedside 160 159 224 187 Glucose mg/dL (70-220) mg/dL (70-220) mg/dL (70-220) mg/dL (70-220) Test 09/12/18 07:58 Bedside 176 Glucose mg/dL (70-220) LACHO PATTON Sep 12, 2018 11:11
--- NOTE | 2018-09-12 12:08 | NUR ---
PT NOTE [facility] Patient: Kari Spivey : 1950 Age/Sex: 67/F Unit#: [id number] Room/Bed: [facility]/A User: Kristine Hanna PTA Date: 09/12/18 12:08 Type: PT Technical Record Therapy day number 2 Subjective Current complaint of pain Pain Scale NUMERIC Pain Intensity 6 (0-10) Patient Stated Goal for Pain Relief 0 (0-10) Pain Level Comment c/o chest pain Pre Treatment Vital Signs Stable Yes - 127/81 96bpm 91% on RA Transfer Training Start Time 11:30 Supine to Sit Independent Transfer Sit to Stand Ability Supervised Bed Transfer Ability Supervised Toileting Ability Supervised Additional Mobility Comments No AD Transfer Training End Time 11:53 Total Transfer Training Time 23 min (8-127) Gait Training Start Time 11:53 Gait Assist Levels Stand by Assist Assistive Devices None Ambulation Distance 150 feet Additional Gait Comments reciprocal pattern, lateral sway. 1 LOB, self recovers Gait Training End Time 12:08 Total Gait Training Treatment Time 15 min (8-127) Weight Bearing Assessment Label Bilat Lower Extremity Weight Bearing Status Full Weight Bearing Static Sitting Balance Good Dynamic Sitting Balance Good Standing Static Balance Fair plus Dynamic Standing Balance Fair Additional Balance Assessments Comments 1 LOB during gait, self recovers Safety Judgement Fair Activity Tolerance Good Equipment Present IV pump Post Treatment Pain Intensity 6 0-10 Total Treament Time 38 min (8-127) Total Minutes 38 Total Units 3 PT Technical Record Comment S: BROOKS Bolaños cleared pt for PT. Pt c/o 6/10 chest pain, however agreeable to tx. Pt is bhutanese speaking, therefore use of underwear welter, TOMMY JHA. O: Received pt in [facility]. RN arrived to assess patient. Pretx VS; 127/81 96bpm 91% on RA. See above for assist levels. Gait training x 150' and presented with reciprocal pattern, lateral sway. 1 LOB during gait training however pt able to self recover. Returned pt back to room. Requested to use toilet. Left pt w/ HIM CODER present in room assisting pt. A: good tolerance to tx. Limited due to c/o dizziness. Supervised/SBA throughout tx. P: Continue w/ POC and progress as tolerated
[2018-09-12] MEDS ORDERED: DIGOXIN 0.25 MG TAB PO SCH (13:00)
--- NOTE | 2018-09-12 15:07 | NUR ---
CM NOTES: FAXED PRESCRIPTION FOR ELIQUIS AT [facility] AL[facility] TRIAL COUPON. WAS INFORMED THAT THE COUPON NEEDS TO BE ACTIVATED. THIS CM FOUND ANOTHER COUPON THAT DOES NOT NEED ACTIVATION AND SENT IT TO [facility]. WILL F/U ACCORDINGLY. RADHA KINNEY, RNCM [id number]
--- NOTE | 2018-09-12 16:01 | NUR ---
CM NOTES: CALLED TO [facility] ([phone]) AND [facility], WAS INFORMED THAT THE COUPON WORKED AND ELIQUIS WILL BE DELIVERED AT BEDSIDE BEFORE 6PM. CALLED TO PT'S SON, BECKY ([phone]) BUT HE DIDN'T ANSWER. LEFT A MESSAGE ON HIS VMAIL, INFORMING HIM THAT PT'S ELIQUIS WILL BE DELIVERED AT BEDSIDE BEFORE 6PM AND THAT PT CAN BE PICKED UP AFTER 6PM. RADHA KINNEY, RNCM [id number]
[2018-09-12] MEDS ORDERED: APIXABAN 5 MG TABLET PO SCH (21:00)
== END 2018-09-12 17:00 | disposition home or self-care (01) | DRG 309 ==
LOC: E/R 00:16 → TEL 03:32
PROVIDERS: ADMIT Family Medicine; ATTEND Hospitalist
DX: I48.91 Unspecified atrial fibrillation (principal); E87.1 Hypo-osmolality and hyponatremia; J06.9 Acute upper respiratory infection, unspecified; E66.9 Obesity, unspecified; Z68.30 Body mass index [BMI] 30.0-30.9, adult; R07.9 Chest pain, unspecified; I10 Essential (primary) hypertension; E11.9 Type 2 diabetes mellitus without complications; F32.9 Major depressive disorder, single episode, unspecified; J40 Bronchitis, not specified as acute or chronic
CPT/HCPCS: 36415; 71045; 80048; 80053; 80061; 82550; 82553; 82962; 83036; 83735; 84100; 84436; 84443; 84479; 84484; 85025; 85610; 85730; 93005; 93306; 96365; 96375; 97116; 97162; 97530; J1815; J2405; J3250; J3475; J7050